=== PATIENT | female | born 1975 | race Caucasian/White ===

== ENCOUNTER 2023-09-19 08:41 | Outpatient (AMB) | payer OTHER, SELFPAY ==
[2023-09-19 08:43] VITALS: BP 162/90; PULSE 85; O2SAT 95
--- NOTE | 2023-09-19 08:43 | MHC.PC.OV ---
Vital Signs 09/19/23 08:43 Height 6 ft 1 in BMI Reason not done Patient refused/unable BP 162/90 H Blood Pressure Location Lt brachial Position Sitting Pulse 85 Pulse Source Pulse Oximeter Pulse Oximetry (%) 95 Oxygen Delivery Method Room Air Intake Visit Reasons: eye issue Intake Note: pt states left eye swelling and pain X3days with no relief. 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 Denies trauma to the eye. Admits hx of styes usually responds well to tea bag comps. Also c/o cellulitis of RLE, acute on chronic, Sx started about 2 months ago. Has been to ED and UC for this. Treated w/ AB. Has been off AB for 1 week. States this has been happenings for the last 3 years. Does not have a PCP. Just moved here from [place] in January. Working on getting established w/ health care team. [facility] Social History Housing: Apartment Patient Tobacco Use Status: Never used Tobacco service: No Current occupational status: employed Cognitive needs: No Hearing needs: No Vision needs: No Questionnaire AUDIT C Alcohol Use Questionnaire (AUDIT-C) 1. How often do you have a drink containing alcohol?: Monthly or less 2. How many drinks containing alcohol do you have on a typical day when you are drinking?: 1 or 2 3. How often do you have six or more drinks on one occasion?: Never Total Score: 1 Physical exam (Primary Care) Vital Signs: Last Vital Signs Pulse 85 09/19/23 08:43 BP 162/90 H 09/19/23 08:43 Pulse Ox 95 09/19/23 08:43 Oxygen Delivery Method Room Air 09/19/23 08:43 Tobacco/Smoking Status: Tobacco use Status Tobacco use date assessed 09/19/23 09/19/23 08:45 Patient Tobacco Use Status Never used Tobacco 09/19/23 08:45 Const Other: awake, alert NAD, chronically ill appearing Left upper eye lid + erythema and edema, tenderness over medial canthus, xenthelasma bilat RLE with lymph edema, chronic hemosiderin changes with multiple vascular ulcers. Skin is not warm to suggest infection. She has dried dressing over ulcer on anterior lower leg which has serous drainage. Shoe not removed for exam Severely morbidly obese Assessment and Plan Assessment & Plan (1) PAD (peripheral artery disease): Comment: affecting BLE w/ ulcers of RLE Referred to vascular surgery for eval and tx Code(s): I73.9 - Peripheral vascular disease, unspecified (2) Dacrocystitis: Comment: tx w doxy, warm comps and gentle message, refer to Optho Code(s): H04.309 - Unspecified dacryocystitis of unspecified lacrimal passage Qualifiers: Laterality: left Qualified Code(s): H04.302 - Unspecified dacryocystitis of left lacrimal passage (3) Congenital blindness: Comment: L eye Code(s): H54.7 - Unspecified visual loss (4) HTN (hypertension): Comment: elevated today. Needs to est care with PCP for management of her chronic conditions She prefers to use urgent cares as does not want to wait months to est care w/ PCP encouraged to set up this appt w PCP and use walk in PRN Code(s): I10 - Essential (primary) hypertension Qualifiers: Hypertension type: primary hypertension Qualified Code(s): I10 - Essential (primary) hypertension (5) Class 3 severe obesity with serious comorbidity and body mass index (BMI) of 60.0 to 69.9 in adult: Comment: with HTN and PAD Code(s): E66.01 - Morbid (severe) obesity due to excess calories; Z68.44 - Body mass index [BMI] 60.0-69.9, adult Qualifiers: Obesity type: due to excess calories Qualified Code(s): E66.01 - Morbid (severe) obesity due to excess calories; Z68.44 - Body mass index [BMI] 60.0-69.9, adult (6) Atherosclerotic peripheral vascular disease with ulceration: Comment: referred to vasc surgery for eval and tx Code(s): I70.209 - Unspecified atherosclerosis of [place] arteries of extremities, unspecified extremity; L98.499 - Non-pressure chronic ulcer of skin of other sites with unspecified severity Qualifiers: Peripheral atherosclerosis location: lower extremity Peripheral atherosclerosis artery type: [place] artery Laterality: bilateral Lower extremity ulceration location: other part of lower leg Qualified Code(s): I70.238 - Atherosclerosis of [place] arteries of right leg with ulceration of other part of lower leg; I70.248 - Atherosclerosis of [place] arteries of left leg with ulceration of other part of lower leg (7) Xanthelasma of eyelid, bilateral: Comment: needs to est care w pcp for mgmt Code(s): H02.63 - Xanthelasma of right eye, unspecified eyelid; H02.66 - Xanthelasma of left eye, unspecified eyelid Plan Total time spent caring for the patient today was 30 minutes. This includes time spent before the visit reviewing the chart, time spent during the visit, and time spent after the visit on documentation This note is constructed using voice recognition software. While every effort has been made to ensure accuracy in gelatin maker utility, still errors may have been included Sometimes, these errors may affect the content or meaning of the given sentence . Orders: Referrals Vascular Surgery Referral I73.9 - Peripheral vascular disease, unspecified Ophthalmology Referral H04.309 - Unspecified dacryocystitis of unspecified lacrimal passage, H54.7 - Unspecified visual loss Medications: New doxycycline hyclate 100 mg PO BID 10 days 20 caps 0RF Coding Level of Care Code Est Pt Level 4 (88075) Diagnoses PAD (peripheral artery disease) I73.9 Dacryocystitis of left lacrimal sac H04.302 Laterality: left Congenital blindness H54.7 Primary hypertension I10 Hypertension type: primary hypertension Class 3 severe obesity due to excess calories with serious comorbidity and body mass index (BMI) of 60.0 to 69.9 in adult E66.01; Z68.44 Obesity type: due to excess calories Atherosclerosis of [place] artery of both lower extremities with bilateral ulceration of other part of lower legs I70.238; I70.248 Peripheral atherosclerosis location: lower extremity Peripheral atherosclerosis artery type: [place] artery Laterality: bilateral Lower extremity ulceration location: other part of lower leg Xanthelasma of eyelid, bilateral H02.63; H02.66
== END 2023-09-19 09:22 | disposition home or self-care (01) ==
PROVIDERS: Visit Provider Nurse Practitioner Family
DX: I70.238 Atherosclerosis of native arteries of right leg with ulceration of other part of lower leg (principal); E66.01 Morbid (severe) obesity due to excess calories; Z68.44 Body mass index [BMI] 60.0-69.9, adult; I70.248 Atherosclerosis of native arteries of left leg with ulceration of other part of lower leg; H04.302 Unspecified dacryocystitis of left lacrimal passage; H54.7 Unspecified visual loss; I10 Essential (primary) hypertension; H02.64 Xanthelasma of left upper eyelid
CPT/HCPCS: 99214

== ENCOUNTER 2023-10-19 14:28 | Outpatient (AMB) | payer OTHER, SELFPAY ==
[2023-10-19 14:35] VITALS: BP 152/80; PULSE 77; RESP 17; O2SAT 95
--- NOTE | 2023-10-19 14:35 | A.OFFPC_ITS ---
Vital Signs 10/19/23 14:35 Height 6 ft 1 in BMI Reason not done Patient refused/unable BP 152/80 H Blood Pressure Location Rt radial Position Sitting Respiration 17 Pulse 77 Pulse Source Pulse Oximeter Pulse Oximetry (%) 95 Oxygen Delivery Method Room Air Intake Visit Reasons: Est care Intake Note: Patient is here to establish care. 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 Required: No Accompanied by: Self / Same As Patient Allergies No Known Allergies Allergy (Verified 10/19/23 15:05) Medication List - Last Reconciled 10/19/23 by KIANNA Gamez No Known Home Meds Tobacco use date assessed: 09/19/23 Dental Screening Dental Screen Date: 09/19/23 HPI HPI Comments History of Present Illness Details 48-year-old female with PAD with ulcerat ion, obesity, hypertension, congenital blindness of the left eye xanthelasma of bilat eyelids, SQUAXIN, some history of heart condition with tachycardia w/ procedure, MDD Health Maintenance: Colon DEXA Mammo Pap Specialists: Optho Vascular Here today to est care Has PVD with lymphedema, weeping of RLE, ulceration of RLE that she has been applying cream and towels to QD Vasc consult placed and was on hold until she est care for PCP No previous medical records; moved from [place]. Has eye appt next week; eye sx she c/o at walk in visit have improved s/p ABT (doxy) No new visual complaints She has not had labs in 6 years Aware of her obesity; admits wt gain; polyuria, dypsia, phagia. [facility] Medical History (Updated 10/19/23 @ 17:22 by KIANNA Gamez) Very rapid heartbeat HTN (hypertension) Congenital blindness PAD (peripheral artery disease) Surgical History (Updated 10/19/23 @ 14:46 by Leonila Larsen CMA) History of cardiac catheterization History of surgery on lower extremity Family History (Updated 10/19/23 @ 15:04 by Leonila Larsen CMA) Maternal Grandfather Alcoholism in family member Lung cancer Primary cancer of optic nerve Cardiovascular disease Mother Hypotension Father Hypertension High cholesterol Diabetes Sister Diabetes Social History (Updated 10/19/23 @ 14:42 by Leonila Larsen CMA) Household Members: None Housing: Apartment Are you a primary special needs child caregiver to a significant other at home: No Do you presently have visiting nurse or other home services: No 75 years or older and lives alone: No Alcohol intake: current Alcohol intake frequency: holidays/special occasions only Patient Tobacco Use Status: Never used Tobacco e-Cigarette/Vaping Use: Never Used service: No Current occupational status: employed Cognitive needs: No Hearing needs: No Vision needs: No Questionnaire PHQ-9 Over the last 2 weeks, how often have you been bothered by any of the following problems? 1. Little interest or pleasure in doing things: nearly every day 2. Feeling down, depressed, or hopeless: not at all 3. Trouble falling or staying asleep, or sleeping too much: nearly every day 4. Feeling tired or having little energy: nearly every day 5. Poor appetite or overeating: nearly every day 6. Feeling bad about yourself - or that you are a failure or have let yourself or your family down: not at all 7. Trouble concentrating on things, such as reading the newspaper or watching television: not at all 8. Moving or speaking so slowly that other people could have noticed. Or the opposite - being so fidgety or restless that you have been moving around a lot more than usual: not at all 9. Thoughts that you would be better off or of hurting yourself in some way: not at all Total score: 12 Depression Screening Interpretation: Positive Depression Screening Follow-up: Follow-up Visit Requested Depression Screening Done: Yes 67664 - PHQ-9 Billing: Yes Source: Developed by Drs. Vinny Adams, Kathi Vazquez, Howie Correia and colleagues, with an educational efren from [employer]. Thrive Questionnaire Date Thrive assessed: 10/19/23 I am a: Patient What is your living situation today?: I have a steady place to live Within the past 12 months, did the food you bought not last and you didn't have the money to get more?: Never true Within the past 12 months, did you worry whether your food would run out before you got money to buy more?: Never true Do you have trouble paying for medicines?: No Do you have trouble getting transportation to medical appointments?: No Do you have trouble paying your heating and electricity bill?: No Do you have trouble taking care of your child, family member or friend?: No Do you have trouble with day-to-day activities such as bathing, preparing meals, shopping, managing finances, etc.?: No Are you currently unemployed and looking for a job?: No Are you interested in more education?: No Please select the resources that you would like help with: None Currently or been in a relationship where the following occur: no concerns repor iris THRIVE Score: 0 AUDIT C Alcohol Use Questionnaire (AUDIT-C) 1. How often do you have a drink containing alcohol?: Monthly or less 2. How many drinks containing alcohol do you have on a typical day when you are drinking?: 1 or 2 3. How often do you have six or more drinks on one occasion?: Never Total Score: 1 DARREL-7 AMB Questionnaire DARREL-7 Date DARREL - 7 assessed: 10/19/23 Feeling nervous, anxious, or on edge: 0 = Not at all Not being able to stop or control worryin = Not at all Worrying too much about different things: 3 = Nearly every day Trouble relaxin = Not at all Being so restless that it is hard to sit still: 0 = Not at all Becoming easily annoyed or irritable: 2 = More than half the days Feeling afraid as if something awful might happen: 0 = Not at all Total DARREL-7 score (0-4 normal; 5-9 mild; 10-14 moderate; 15-21 severe): 5 Source: Developed by Drs. Vinny Adams, Kathi Vazquez, Howie Correia and colleagues, with an educational efren from [employer]. DARERL-7 Assessment Billing DARREL-7 Assessment Tool: DARREL-7 Assessment 80340 Physical exam (Primary Care) Vital Signs: Last Vital Signs Pulse 77 10/19/23 14:35 Resp 17 10/19/23 14:35 BP 152/80 H 10/19/23 14:35 Pulse Ox 95 10/19/23 14:35 Oxygen Delivery Method Room Air 10/19/23 14:35 Care Plan Goal for BP management: start meds at next visit after lab review BMI Assessment/Plan discussion: High BMI High, discussed plan: lifestyle Tobacco/Smoking Status: Tobacco use Status Tobacco use date assessed 09/19/23 10/19/23 14:49 Patient Tobacco Use Status Never used Tobacco 10/19/23 14:49 e-Cigarette/Vaping Use Never Used 10/19/23 14:49 PHQ-9: PHQ-9 Score PHQ-9: Total score 12 10/19/23 15:36 Depression Screening Interpretation: Positive Depression Screening Follow-up: Follow-up Visit Requested Thrive Assessment: Date of Thrive Assessment Date Thrive assessed 10/19/23 10/19/23 14:49 Currently or been in a relationship where the following occur: no concerns reported Const Other: awake, alert NAD, chronically ill appearing xenthelasma bilat BLE with lymphedema & chronic hemosiderin changes, RLE with multiple vascular ulcers. Skin is not warm to suggest infection. Shoes not removed for exam Severely morbidly obese Assessment and Plan Assessment & Plan (1) Atherosclerotic peripheral vascular disease with ulceration: Comment: referred to vasc surgery for eval and tx advised to apply xeroform gauze and dcd to ulcer QD until healed or advised by [facility] to do something else apply lachydrin to intact skin Code(s): I70.209 - Unspecified atherosclerosis of [place] arteries of extremities, unspecified extremity; L98.499 - Non-pressure chronic ulcer of skin of other sites with unspecified severity Qualifiers: Laterality: bilateral Lower extremity ulceration location: other part of lower leg Peripheral atherosclerosis artery type: [place] artery Peripheral atherosclerosis location: lower extremity Qualified Code(s): I70.238 - Atherosclerosis of [place] arteries of right leg with ulceration of other part of lower leg; I70.248 - Atherosclerosis of [place] arteries of left leg with ulceration of other part of lower leg (2) PAD (peripheral artery disease): Comment: affecting BLE w/ ulcers of RLE Referred to vascular surgery for eval and tx Code(s): I73.9 - Peripheral vascular disease, unspecified (3) HTN (hypertension): Comment: elevated today. check labs and bring back for review and medication start Code(s): I10 - Essential (primary) hypertension Qualifiers: Hypertension type: primary hypertension Qualified Code(s): I10 - Essential (primary) hypertension (4) Class 3 severe obesity with serious comorbidity and body mass index (BMI) of 60.0 to 69.9 in adult: Comment: with HTN and PAD Code(s): E66.01 - Morbid (severe) obesity due to excess calories; Z68.44 - Body mass index [BMI] 60.0-69.9, adult Qualifiers: Obesity type: due to excess calories Qualified Code(s): E66.01 - Morbid (severe) obesity due to excess calories; Z68.44 - Body mass index [BMI] 60.0- 69.9, adult Plan 60 minutes spent taking care of this patient, this includes chart review, face to face time and charting. Orders: Orders TSH reflex Free T4 Today E66.01 - Morbid (severe) obesity due to excess calories, I10 - Essential (primary) hypertension, I70.238 - Atherosclerosis of [place] arteries of right leg with ulceration of other part of lower leg, I70.248 - Atherosclerosis of [place] arteries of left leg with ulceration of other part of lower leg, I73.9 - Peripheral vascular disease, unspecified, Z68.44 - Body mass index [BMI] 60.0-69.9, adult Microalbumin, Random (w Creat) Today E66.01 - Morbid (severe) obesity due to excess calories, I10 - Essential (primary) hypertension, I70.238 - Atherosclerosis of [place] arteries of right leg with ulceration of other part of lower leg, I70.248 - Atherosclerosis of [place] arteries of left leg with ulceration of other part of lower leg, I73.9 - Peripheral vascular disease, unspecified, Z68.44 - Body mass index [BMI] 60.0-69.9, adult IRON PROFILE Today E66.01 - Morbid (severe) obesity due to excess calories, I10 - Essential (primary) hypertension, I70.238 - Atherosclerosis of [place] arteries of right leg with ulceration of other part of lower leg, I70.248 - Atherosclerosis of [place] arteries of left leg with ulceration of other part of lower leg, I73.9 - Peripheral vascular disease, unspecified, Z68.44 - Body mass index [BMI] 60.0-69.9, adult Lipid Panel Today E66.01 - Morbid (severe) obesity due to excess calories, I10 - Essential (primary) hypertension, I70.238 - Atherosclerosis of [place] arteries of right leg with ulceration of other part of lower leg, I70.248 - Atherosclerosis of [place] arteries of left leg with ulceration of other part of lower leg, I73.9 - Peripheral vascular disease, unspecified, Z68.44 - Body mass index [BMI] 60.0-69.9, adult Hemoglobin A1c Today E66.01 - Morbid (severe) obesity due to excess calories, I10 - Essential (primary) hypertension, I70.238 - Atherosclerosis of [place] arteries of right leg with ulceration of other part of lower leg, I70.248 - Atherosclerosis of [place] arteries of left leg with ulceration of other part of lower leg, I73.9 - Peripheral vascular disease, unspecified, Z68.44 - Body mass index [BMI] 60.0-69.9, adult Comprehensive Phyllis. Panel Fast Today E66.01 - Morbid (severe) obesity due to excess calories, I10 - Essential (primary) hypertension, I70.238 - Atherosclerosis of [place] arteries of right leg with ulceration of other part of lower leg, I70.248 - Atherosclerosis of [place] arteries of left leg with ulceration of other part of lower leg, I73.9 - Peripheral vascular disease, unspecified, Z68.44 - Body mass index [BMI] 60.0-69.9, adult Vitamin D 1,25 dihydroxy Today E66.01 - Morbid (severe) obesity due to excess calories, I10 - Essential (primary) hypertension, I70.238 - Atherosclerosis of [place] arteries of right leg with ulceration of other part of lower leg, I70.248 - Atherosclerosis of [place] arteries of left leg with ulceration of other part of lower leg, I73.9 - Peripheral vascular disease, unspecified, Z68.44 - Body mass index [BMI] 60.0-69.9, adult Complete Blood Count no Diff Today E66.01 - Morbid (severe) obesity due to excess calories, I10 - Essential (primary) hypertension, I70.238 - Atherosclerosis of [place] arteries of right leg with ulceration of other part of lower leg, I70.248 - Atherosclerosis of [place] arteries of left leg with ulceration of other part of lower leg, I73.9 - Peripheral vascular disease, unspecified, Z68.44 - Body mass index [BMI] 60.0-69.9, adult Vitamin B12 and Folate Today E66.01 - Morbid (severe) obesity due to excess calories, I10 - Essential (primary) hypertension, I70.238 - Atherosclerosis of [place] arteries of right leg with ulceration of other part of lower leg, I70.248 - Atherosclerosis of [place] arteries of left leg with ulceration of other part of lower leg, I73.9 - Peripheral vascular disease, unspecified, Z68.44 - Body mass index [BMI] 60.0-69.9, adult UA CC w/rflx Micro + Cult Today E66.01 - Morbid (severe) obesity due to excess calories, Z68.44 - Body mass index [BMI] 60.0-69.9, adult Medications: New white petrolatum (Petrolatum Gauze) As directed, apply to lower ext ulcer daily until healed 72 ea 0RF I70.238 - Atherosclerosis of [place] arteries of right leg with ulceration of other part of lower leg, I70.248 - Atherosclerosis of [place] arteries of left leg with ulceration of other part of lower leg gauze bandage (Band-Aid Rolled Gauze) As directed, use daily to lower ext open area until healed 30 ea 5RF I70.238 - Atherosclerosis of [place] arteries of right leg with ulceration of other part of lower leg, I70.248 - Atherosclerosis of [place] arteries of left leg with ulceration of other part of lower leg ammonium lactate 12% 1 appl topical BID 385 grams 3RF apply to lower ext, avoid open areas Patient Instructions: XEROFORM GAUZE (ANY SIZE > 4X4) ROLLED GAUZE (ANY SIZE) Please call to schedule appt: ?[facility] [address] [place] [address] [address] [place], [place] [id number] RTO IN 2 WEEKS TO FU ON LABS AND DISCUSS START MEDS FOR CHRONIC CONDITIONS, SOONER IF NEEDED Coding Level of Care Code Est Pt Level 5 (33995) Diagnoses Atherosclerosis of [place] artery of both lower extremities with bilateral ulceration of other part of lower legs I70.238; I70.248 Laterality: bilateral Lower extremity ulceration location: other part of lower leg Peripheral atherosclerosis artery type: [place] artery Peripheral atherosclerosis location: lower extremity PAD (peripheral artery disease) I73.9 Primary hypertension I10 Hypertension type: primary hypertension Class 3 severe obesity due to excess calories with serious comorbidity and body mass index (BMI) of 60.0 to 69.9 in adult E66.01; Z68.44 Obesity type: due to excess calories Additional Codes DARREL-7 Assessment Billing - DARREL-7 Assessment Tool: DARREL-7 Assessment 16312 ([id number])
== END 2023-10-19 15:54 | disposition home or self-care (01) ==
PROVIDERS: Visit Provider Nurse Practitioner Family
DX: I70.238 Atherosclerosis of native arteries of right leg with ulceration of other part of lower leg (principal); I70.248 Atherosclerosis of native arteries of left leg with ulceration of other part of lower leg; E66.01 Morbid (severe) obesity due to excess calories; Z68.44 Body mass index [BMI] 60.0-69.9, adult; I10 Essential (primary) hypertension
CPT/HCPCS: 99215; 99417

== ENCOUNTER 2023-10-26 10:02 | Outpatient (REF) | payer OTHER, SELFPAY ==
[2023-10-26 11:27] LABS: Appearance Urine Clear; Color Urine Yellow; Glucose Urine UA Negative (Negative); Leukocyte Esterase Urine Negative (Negative); Nitrite Urine Negative (Negative); PH 5.5 (5.0-9.0); Specific Gravity - Urine 1.015 (1.005-1.025); Urine Blood Negative (Negative); Urine Ketones Negative (Negative); Urine Protein Negative (Neg-Trace)
[2023-10-26 11:41] LABS: Hematocrit 43.1 % (37.0-47.0); Hemoglobin 13.3 g/dl (12.0-16.0); Mean Corpuscular HGB Conc 30.9 g/dl (31.0-35.0); Mean Corpuscular Hemoglobin 26.5 pg (27.0-33.0); Mean Corpuscular Volume 85.9 fL (80.0-98.0); Mean Platelet Volume 12.3 fL (9.4-12.3); Platelet Count 230 X10*3/uL (160-400); Red Blood Count 5.02 X10*6/uL (4.20-5.50); Red Cell Distribution Width 15.5 % (11.0-16.0); White Blood Count 5.5 X10*3/uL (4.8-10.8)
[2023-10-26 11:54] LABS: Estimated Average Glucose 131 mg/dL; Hemoglobin A1c % 6.2 % (<6.0)
[2023-10-26 12:24] LABS: Alanine Aminotransferase 24 U/L (0-31); Albumin Level 4.2 g/dL (3.5-5.0); Alkaline Phosphatase 60 U/L (39-117); Anion Gap 12 (12-20); Aspartate Amino Transferase 19 U/L (5-31); Bilirubin Total 1.5 mg/dL (0.0-1.0); Blood Urea Nitrogen 25 mg/dL (9-16); Calcium 9.5 mg/dL (8.4-10.2); Carbon Dioxide 25 mmol/L (22-29); Chloride 106 mmol/L (96-108); Cholesterol 161 mg/dL (<200); Estimated Glomerular Filt Rate > 60; Glucose Fasting 106 mg/dL (60-99); HDL Cholesterol 34 mg/dL (>40); Iron 110 mcg/dL (30-160); LDL Cholesterol Calculated 109 mg/dL (<100); Percent Iron Saturation 28 % (15-50); Sodium 138 mmol/L (135-145); TSH reflex Free T4 1.45 uIU/mL (0.32-4.0); Total Iron Binding Capacity 389 mcg/dL (228-428); Total Protein 7.6 g/dL (6.5-8.0); Triglycerides 90 mg/dL (<150); Unsaturated Iron Binding 279 ug/dL
[2023-10-26 12:27] LABS: Creatinine Urine 78.68 mg/dL; Microalbum/Creatinine Ratio Ur 16.5 ug/mg cr (<30)
[2023-10-26 18:02] LABS: Folate 7.8 ng/mL (> or = 4.0); Vitamin B12 366 pg/mL (200-900)
[2023-10-30 14:09] LABS: VITAMIN D (1,25 OH) D3 35 pg/mL; Vit D (1,25-Dihydroxy) Total 35 pg/mL (18-72); Vitamin D (1,25 OH) D2 <8 pg/mL
== END 2023-10-26 10:03 | disposition home or self-care (01) ==
LOC: HO.WFDLDS 10:02
PROVIDERS: Visit Provider Nurse Practitioner Family
DX: I70.238 Atherosclerosis of native arteries of right leg with ulceration of other part of lower leg (principal); I70.248 Atherosclerosis of native arteries of left leg with ulceration of other part of lower leg; E66.01 Morbid (severe) obesity due to excess calories; Z68.44 Body mass index [BMI] 60.0-69.9, adult; I10 Essential (primary) hypertension
CPT/HCPCS: 36415; 80053; 80061; 81003; 82043; 82570; 82607; 82652; 82746; 83036; 83540; 84443; 85027

== ENCOUNTER 2023-11-02 09:39 | Outpatient (AMB) | payer OTHER, SELFPAY ==
--- NOTE | 2023-11-02 09:42 | MHC.PC.OV ---
Vital Signs 11/02/23 09:51 Height 6 ft 1 in BMI Reason not done Patient refused/unable Pulse 71 Pulse Source Pulse Oximeter Pulse Oximetry (%) 95 Oxygen Delivery Method Room Air Intake Visit Reasons: FU LABS/Edema/Start meds Intake Note: Patient is here to follow up with labs and edema. Patient reports she is worried today, but shares she has no concerns at this time. 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, [place], some history of heart condition with tachycardia w/ procedure, MDD, prediabetes Health Maintenance: Colon DEXA Mammo Pap Eye exam 09/2023 Specialists: Optho Vascular Here today to f/u on labs, HTN, lymphedema Labs from October 26 2023 show a normal CBC, hemoglobin A1c 6.2%, normal UA, normal electrolytes, elevated BUN 25, normal creatinine GFR, normal elevated fasting glucose 106, normal iron studies, elevated total bilirubin 1.5, normal LFTs, acceptable lipid profile, normal B12, normal folate, normal TSH, normal urine microalbumin creatinine ratio, vitamin-D normal No appt w/ Vascular yet - i have sent another request to office staff to help schedule this; the referral is already in place She is using Lachydrin as directed along w/ xeroform. Ulcers to RLE remain the same. [facility] Medical History (Updated 11/02/23 @ 10:33 by KIANNA Gamez) Very rapid heartbeat HTN (hypertension) Congenital blindness PAD (peripheral artery disease) Surgical History (Updated 10/19/23 @ 14:46 by Leonila Larsen [facility]) History of cardiac catheterization History of surgery on lower extremity Family History (Updated 10/19/23 @ 15:04 by Leonila Larsen CMA) Maternal Grandfather Alcoholism in family member Lung cancer Primary cancer of optic nerve Cardiovascular disease Mother Hypotension Father Hypertension High cholesterol Diabetes Sister Diabetes Social History (Updated 10/19/23 @ 14:42 by Leonila Larsen CMA) Household Members: None Housing: Apartment Are you a primary pet care associate to a significant other at home: No Do you presently have visiting nurse or other home services: No 75 years or older and lives alone: No Alcohol intake: current Alcohol intake frequency: holidays/special occasions only Patient Tobacco Use Status: Never used Tobacco e-Cigarette/Vaping Use: Never Used service: No Current occupational status: employed Cognitive needs: No Hearing needs: No Vision needs: No Questionnaire PHQ-9 Over the last 2 weeks, how often have you been bothered by any of the following problems? Depression Screening Interpretation: Negative Depression Screening Done: Yes Source: Developed by Drs. Vinny Adams, Kathi Vazquez, Howie Correia and colleagues, with an educational efren from [employer]. Thrive Questionnaire Date Thrive assessed: 10/19/23 Currently or been in a relationship where the following occur: no concerns reported THRIVE Score: 0 DARREL-7 AMB Questionnaire DARREL-7 Date DARREL - 7 assessed: 10/19/23 Source: Developed by Drs. Vinny Adams, Howie Zarate and colleagues, with an educational efren from [employer]. Review of Systems Const All systems reviewed & are unremarkable except as noted in HPI and below Physical exam (Primary Care) Vital Signs: Last Vital Signs Pulse 71 11/02/23 09:51 Pulse Ox 95 11/02/23 09:51 Oxygen Delivery Method Room Air 11/02/23 09:51 Care Plan Goal for BP management: start HCTZ Next steps: MONITOR BMI Assessment/Plan discussion: High BMI High, discussed plan: lifestyle Tobacco/Smoking Status: Tobacco use Status Tobacco use date assessed 09/19/23 11/02/23 09:42 Patient Tobacco Use Status Never used Tobacco 11/02/23 09:42 e-Cigarette/Vaping Use Never Used 11/02/23 09:42 Depression Screening Interpretation: Negative Thrive Assessment: Date of Thrive Assessment Date Thrive assessed 10/19/23 11/02/23 09:42 Currently or been in a relationship where the following occur: no concerns reported Const Other: awake, alert NAD, chronically ill appearing xenthelasma bilat BLE with lymphedema & chronic hemosiderin changes, RLE with multiple vascular ulcers. Skin is not warm to suggest infection. Shoes not removed for exam Severely morbidly obese Assessment and Plan Assessment & Plan (1) Xanthelasma of eyelid, bilateral: Comment: start atorvastatin 40mg QD Cont to f/u with Optho Code(s): H02.63 - Xanthelasma of right eye, unspecified eyelid; H02.66 - Xanthelasma of left eye, unspecified eyelid (2) Atherosclerotic peripheral vascular disease with ulceration: Comment: referred to [facility] surgery for eval and tx advised to apply xeroform gauze and dcd to ulcer QD until healed or advised by [facility] to do something else apply lachydrin to intact skin Start Atorvastatin 40mg QD. Code(s): I70.209 - Unspecified atherosclerosis of [place] arteries of extremities, unspecified extremity; L98.499 - Non-pressure chronic ulcer of skin of other sites with unspecified severity Qualifiers: Peripheral atherosclerosis location: lower extremity Peripheral atherosclerosis artery type: [place] artery Laterality: bilateral Lower extremity ulceration location: other part of lower leg Qualified Code(s): I70.238 - Atherosclerosis of [place] arteries of right leg with ulceration of other part of lower leg; I70.248 - Atherosclerosis of [place] arteries of left leg with ulceration of other part of lower leg (3) Class 3 severe obesity with serious comorbidity and body mass index (BMI) of 60.0 to 69.9 in adult: Comment: with HTN and PAD Start Rebylsus 3mg po QD. Titrate to effect. No contraindications. Reviewed side effects. Code(s): E66.01 - Morbid (severe) obesity due to excess calories; Z68.44 - Body mass index [BMI] 60.0-69.9, adult Qualifiers: Obesity type: due to excess calories Qualified Code(s): E66.01 - Morbid (severe) obesity due to excess calories; Z68.44 - Body mass index [BMI] 60.0-69.9, adult (4) HTN (hypertension): Comment: Start HCTZ 25mg po QD Goal <130/80 Code(s): I10 - Essential (primary) hypertension Qualifiers: Hypertension type: primary hypertension Qualified Code(s): I10 - Essential (primary) hypertension (5) Prediabetes: Comment: 10/2023 HgA1 6.2% Start Rebylsus 3 mg po QD. Code(s): R73.03 - Prediabetes Plan This note is constructed using voice recognition software. While every effort has been made to ensure accuracy in surg physician asst, still errors may have been included Sometimes, these errors may affect the content or meaning of the given sentence . Total time spent caring for the patient today was 45 minutes. This includes time spent before the visit reviewing the chart, time spent during the visit, and time spent after the visit on documentation Orders: Orders Lipid Panel 01/08/24 E66.01 - Morbid (severe) obesity due to excess calories, I10 - Essential (primary) hypertension, I70.238 - Atherosclerosis of [place] arteries of right leg with ulceration of other part of lower leg, I70.248 - Atherosclerosis of [place] arteries of left leg with ulceration of other part of lower leg, R73.03 - Prediabetes, Z68.44 - Body mass index [BMI] 60.0-69.9, adult Hemoglobin A1c 01/08/24 E66.01 - Morbid (severe) obesity due to excess calories, I10 - Essential (primary) hypertension, I70.238 - Atherosclerosis of [place] arteries of right leg with ulceration of other part of lower leg, I70.248 - Atherosclerosis of [place] arteries of left leg with ulceration of other part of lower leg, R73.03 - Prediabetes, Z68.44 - Body mass index [BMI] 60.0-69.9, adult Comprehensive [place]. Panel Fast 01/08/24 E66.01 - Morbid (severe) obesity due to excess calories, I10 - Essential (primary) hypertension, I70.238 - Atherosclerosis of [place] arteries of right leg with ulceration of other part of lower leg, I70.248 - Atherosclerosis of [place] arteries of left leg with ulceration of other part of lower leg, R73.03 - Prediabetes, Z68.44 - Body mass index [BMI] 60.0-69.9, adult Medications: New hydrochlorothiazide 25 mg PO DAILY 90 tabs 0RF atorvastatin 40 mg PO BEDTIME 90 tabs 0RF semaglutide 3 mg PO DAILY 30 days 30 tabs 0RF Patient Instructions: RTO in 4 weeks to fu on HTN, Obesity, PAD , sooner PRN Emphasize that?Rybelsus?must be taken DAILY with a sip or no more than 4 ounces of water...at least 30 minutes before the first food, other beverage, or oral meds of the day. Not doing so reduces efficacy. Coding Level of Care Code Est Pt Level 5 (17215) Diagnoses Xanthelasma of eyelid, bilateral H02.63; H02.66 Atherosclerosis of [place] artery of both lower extremities with bilateral ulceration of other part of lower legs I70.238; I70.248 Peripheral atherosclerosis location: lower extremity Peripheral atherosclerosis artery type: [place] artery Laterality: bilateral Lower extremity ulceration location: other part of lower leg Class 3 severe obesity due to excess calories with serious comorbidity and body mass index (BMI) of 60.0 to 69.9 in adult E66.01; Z68.44 Obesity type: due to excess calories Primary hypertension I10 Hypertension type: primary hypertension Prediabetes R73.03
[2023-11-02 09:51] VITALS: PULSE 71; O2SAT 95
== END 2023-11-02 10:30 | disposition home or self-care (01) ==
PROVIDERS: Visit Provider Nurse Practitioner Family
DX: I70.238 Atherosclerosis of native arteries of right leg with ulceration of other part of lower leg (principal); I70.248 Atherosclerosis of native arteries of left leg with ulceration of other part of lower leg; E66.01 Morbid (severe) obesity due to excess calories; Z68.44 Body mass index [BMI] 60.0-69.9, adult; H02.63 Xanthelasma of right eye, unspecified eyelid; H02.66 Xanthelasma of left eye, unspecified eyelid; I10 Essential (primary) hypertension; R73.03 Prediabetes
CPT/HCPCS: 99215

== ENCOUNTER 2023-12-07 11:02 | Outpatient (AMB) | payer OTHER, SELFPAY ==
--- NOTE | 2023-12-07 11:07 | A.OFFVIS_ITS ---
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 Has a wound on the right calf area that is seeping yellowish fluid. Says she's concerned because her skin is bubbling starting around 6 months ago. Thought it was cellulitis at first. 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 She reports that it has been going on since October. She has had swollen legs for many years. They have been progressively getting worse. At the current time she has this right lateral calf ulcer which has been draining serous fluid. She was actually given a diuretic by her primary care which has improved her overall situation but she is still draining a fair amount from these legs. Upon discussion with her she is a nonsmoker nondiabetic. She reports no prior history of DVTs or venous interventions. She now presents to us for vascular evaluation. [facility] Medical History Very rapid heartbeat HTN (hypertension) Congenital blindness PAD (peripheral artery disease) Surgical History History of cardiac catheterization History of surgery on lower extremity Family History Maternal Grandfather Alcoholism in family member Lung cancer Primary cancer of optic nerve Cardiovascular disease Mother Hypotension Father Hypertension High cholesterol Diabetes Sister Diabetes Social History Household Members: None Housing: Apartment Are you a primary cattle care worker to a significant other at home: No Do you presently have visiting nurse or other home services: No 75 years or older and lives alone: No Alcohol intake: current Alcohol intake frequency: holidays/special occasions only Patient Tobacco Use Status: Never used Tobacco e-Cigarette/Vaping Use: Never Used service: No Current occupational status: employed Sexual orientation: Unable to collect Gender identity: Female Cognitive needs: No Hearing needs: No Vision needs: No Review of Systems Const Reports as per HPI ENT Reports no additional complaints Card Denies chest pain, Denies chest pain at rest and Denies chest pain with activity Resp Denies chest congestion and Denies cough GI Reports no additional complaints Musc Details: pain over varicosities, aching of lower extremities, swelling, cramping, heaviness and tiredness, itching Denies abnormal gait Skin/Breast Reports pruritus and Denies wounds Neuro Reports no additional complaints and Denies abnormal gait Psych Denies no additional complaints Physical Exam Const General: cooperative, healthy appearing and comfortable Orientation/consciousness: oriented to person, oriented to place and oriented to time Neck Carotids: no bruits Chest Chest palpation & inspection: normal inspection of the chest and normal palpation of entire chest wall Resp Effort & Inspection: normal respiratory effort and able to speak in complete sentences Cardio Other: Patient does have palpable bilateral arterial pulses Rate: regular rate Heart sounds: S1 normal heart sound present and S2 normal heart sound present Peripheral pulses: Peripheral pulses 2+ throughout GI Inspection: Yes normal to inspection Skin Other: +2 edema, right calf open wound with serous drainage. Extremely swollen legs with hyperkeratotic skin CEAP Classification C6 - open ulcer Ep - Etiology Primary As - superficial veins P - reflux General skin exam: dry skin Neuro General: oriented to person, oriented to place and oriented to time Extrem Right lower extremity: full ROM, normal capillary refill and edema Left lower extremity: full ROM, normal capillary refill and edema Psych Mental Status: mental status grossly normal Assessment & Plan Assessment & Plan (1) Varicose veins of right lower extremity with inflammation: Code(s): I83.11 - Varicose veins of right lower extremity with inflammation Category: Medical Plan: In short patient has significantly swollen legs. There are multiple etiologies of this including her super morbid obesity. I would like to work her up for venous insufficiency. Her arterial system does appear to be intact as she does have palpable pulses. Unclear if I will be able to intervene on her venous di sease due to her size. But we will assess this. Should this prove to be negative we may try to obtain lymphedema pumps to try to help her overall situation. (2) Lymphedema: Code(s): I89.0 - Lymphedema, not elsewhere classified Category: Medical Plan: Will need workup for venous insufficiency. In addition we will plan for lymphedema pumps. Orders: Orders US venous duplex LE BI 1 Week I83.11 - Varicose veins of right lower extremity with inflammation Coding Level of Care Code New Pt Level 4 (94209) Diagnoses Varicose veins of right lower extremity with inflammation I83.11 Lymphedema I89.0
== END 2023-12-07 11:41 | disposition home or self-care (01) ==
PROVIDERS: Visit Provider Surgery Vascular Surgery
DX: I83.11 Varicose veins of right lower extremity with inflammation (principal); I89.0 Lymphedema, not elsewhere classified
CPT/HCPCS: 99203

== ENCOUNTER 2023-12-21 09:36 | Outpatient (AMB) | payer OTHER, SELFPAY ==
[2023-12-21 09:46] VITALS: BP 160/90; PULSE 106; RESP 15; TEMP 36.6; O2SAT 97
--- NOTE | 2023-12-21 09:46 | MHC.PC.OV ---
Vital Signs 12/21/23 09:46 12/21/23 10:48 Height 6 ft 1 in BMI Reason not done Patient refused/unable BP 160/90 H 138/80 Blood Pressure Location Rt brachial Rt radial Position Sitting Sitting Respiration 15 Pulse 106 H Pulse Source Pulse Oximeter Temp 98 F Temp Source Temporal Artery Scan Pulse Oximetry (%) 97 Oxygen Delivery Method Room Air Intake Visit Reasons: f/u HTN,chol,lympedema,obesity Teaching Music Lessons Required: No Accompanied by: Self / Same As Patient Allergies No Known Allergies Allergy (Verified 12/21/23 09:51) Medication List - Last Reconciled 12/21/23 by Ngoc Gambino, BOILERMAKER-BC ammonium lactate 12% 1 appl topical BID atorvastatin 40 mg PO BEDTIME gauze bandage (Band-Aid Rolled Gauze) As directed, use daily to lower ext open area until healed hydrochlorothiazide 25 mg PO DAILY white petrolatum (Petrolatum Gauze) As directed, apply to lower ext ulcer daily until healed Tobacco use date assessed: 09/19/23 Dental Screening Dental Screen Date: 09/19/23 HPI HPI Comments History of Present Illness Details 48-year-old female with PAD with ulceration, obesity, hypertension, congenital blindness of the left eye xanthelasma of bilat eyelids. [place], prediabetes Health Maintenance: Colon DEXA Mammo Pap [facility] - 10/2023 exam Specialists: Optho Vascular Labs from October 26 2023 show a normal CBC, hemoglobin A1c 6.2%, normal UA, normal electrolytes, elevated BUN 25, normal creatinine GFR, normal elevated fasting glucose 106, normal iron studies, elevated total bilirubin 1.5, normal LFTs, acceptable lipid profile, normal B12, normal folate, normal TSH, normal urine microalbumin creatinine ratio, vitamin-D normal Here today to follow up on chronic conditions. Since last office visit she did have a consult with vascular. This consult note was reviewed. - check imaging, tx for lymphedema DX with Rogelio Pedrito Unfortunately she missed her vascular imaging as she overslept. She will work on rescheduling. She has using the foam pads and David bandage as directed to the right lower extremity ulcer. Having a hard time managing David bandage as she can not bend over. During the best that she can. Unfortunately the rybelsus this was not covered by her insurance to help her with weight loss. Even PA was denied. Having issues w/ sleep, started a few weeks ago. Declined sleep study as she does not want to wear a machine. Blood pressure is well controlled on her current medications. She is tolerating compliant. Plan Add wellbutrin xl 150mg po QD to see if this helps with weight loss. Cont care w/ Vascular Continue blood pressure medications 30 min in January HTN, lipids, wt loss, repeat fasting labs 1 week before. [facility] Medical History Very rapid heartbeat HTN (hypertension) Congenital blindness PAD (peripheral artery disease) Surgical History History of cardiac catheterization History of surgery on lower extremity Family History Maternal Grandfather Alcoholism in family member Lung cancer Primary cancer of optic nerve Cardiovascular disease Mother Hypotension Father Hypertension High cholesterol Diabetes Sister Diabetes Social History Household Members: None Housing: Apartment Are you a primary neonatal critical care nurse to a significant other at home: No Do you presently have visiting nurse or other home services: No 75 years or older and lives alone: No Alcohol intake: current Alcohol intake frequency: holidays/special occasions only Patient Tobacco Use Status: Never used Tobacco e-Cigarette/Vaping Use: Never Used service: No Current occupational status: employed Sexual orientation: Unable to collect Gender identity: Female Cognitive needs: No Hearing needs: No Vision needs: No Questionnaire Thrive Questionnaire Date Thrive assessed: 10/19/23 DARREL-7 AMB Questionnaire DARREL-7 Date DARREL - 7 assessed: 10/19/23 Source: Developed by Drs. Vinny Adams, Kathi Vazquez, Howie Correia and colleagues, with an educational efren from [employer]. Review of Systems Const All systems reviewed & are unremarkable except as noted in HPI and below Physical exam (Primary Care) Vital Signs: Last Vital Signs Temp 98 F 12/21/23 09:46 Pulse 106 H 12/21/23 09:46 Resp 15 12/21/23 09:46 BP 138/80 12/21/23 10:48 Pulse Ox 97 12/21/23 09:46 Oxygen Delivery Method Room Air 12/21/23 09:46 Tobacco/Smoking Status: Tobacco use Status Tobacco use date assessed 09/19/23 12/21/23 09:52 Patient Tobacco Use Status Never used Tobacco 12/21/23 09:52 e-Cigarette/Vaping Use Never Used 12/21/23 09:52 Thrive Assessment: Date of Thrive Assessment Date Thrive assessed 10/19/23 12/21/23 09:52 Const Other: awake, alert NAD, chronically ill appearing xenthelasma bilat BLE with lymphedema & chronic hemosiderin changes, RLE with multiple vascular ulcers. Skin is not warm to suggest infection. Shoes not removed for exam. Foam dressing and DAVID wrap reapplied during visit today Severely morbidly obese Assessment and Plan Assessment & Plan (1) HTN (hypertension): Comment: cont HCTZ 25mg po QD Goal <130/80 Code(s): I10 - Essential (primary) hypertension Qualifiers: Hypertension type: primary hypertension Qualified Code(s): I10 - Essential (primary) hypertension (2) PAD (peripheral artery disease): Comment: affecting BLE w/ ulcers of RLE Referred to vascular surgery Code(s): I73.9 - Peripheral vascular disease, unspecified (3) Class 3 severe obesity with serious comorbidity and body mass index (BMI) of 60.0 to 69.9 in adult: Comment: with HTN and PAD Start Rebylsus 3mg po QD. Titrate to effect. No contraindications.not covered by insurance Start wellbutrin xl 150mg po QD May consider adding naltrexone (contrave) at next visit. Code(s): E66.01 - Morbid (severe) obesity due to excess calories; Z68.44 - Body mass index [BMI] 60.0-69.9, adult Qualifiers: Obesity type: due to excess calories Qualified Code(s): E66.01 - Morbid (severe) obesity due to excess calories; Z68.44 - Body mass index [BMI] 60.0-69.9, adult Plan This note is constructed using voice recognition software. While every effort has been made to ensure accuracy in candy puller, still errors may have been included Sometimes, these errors may affect the content or meaning of the given sentence . Total time spent caring for the patient today was 41 minutes. This includes time spent before the visit reviewing the chart, time spent during the visit, and time spent after the visit on documentation Medications: New bupropion HCl XL (Wellbutrin XL) 150 mg PO QAM 90 tabs 0RF Patient Instructions: Plan Add wellbutrin xl 150mg po QD to see if this helps with weight loss. Cont care w/ Vascular Continue blood pressure medications 30 min in January HTN, lipids, wt loss, repeat fasting labs 1 week before. Coding Level of Care Code Est Pt Level 5 (45502) Diagnoses Primary hypertension I10 Hypertension type: primary hypertension PAD (peripheral artery disease) I73.9 Class 3 severe obesity due to excess calories with serious comorbidity and body mass index (BMI) of 60.0 to 69.9 in adult E66.01; Z68.44 Obesity type: due to excess calories
[2023-12-21 10:48] VITALS: BP 138/80
== END 2023-12-21 10:56 | disposition home or self-care (01) ==
PROVIDERS: PCP Nurse Practitioner Family; Visit Provider Nurse Practitioner Family
DX: I10 Essential (primary) hypertension (principal); I73.9 Peripheral vascular disease, unspecified; E66.01 Morbid (severe) obesity due to excess calories; Z68.44 Body mass index [BMI] 60.0-69.9, adult
CPT/HCPCS: 99215

== ENCOUNTER 2024-01-25 07:31 | Outpatient (REF) | payer OTHER, SELFPAY ==
[2024-01-25 11:37] LABS: Estimated Average Glucose 148 mg/dL; Hemoglobin A1c % 6.8 % (<6.0)
[2024-01-25 11:49] LABS: Alanine Aminotransferase 22 U/L (0-31); Albumin Level 4.2 g/dL (3.5-5.0); Alkaline Phosphatase 80 U/L (39-117); Anion Gap 18 (12-20); Aspartate Amino Transferase 18 U/L (5-31); Blood Urea Nitrogen 29 mg/dL (9-16); Carbon Dioxide 26 mmol/L (22-29); Chloride 99 mmol/L (96-108); Cholesterol 141 mg/dL (<200); Estimated Glomerular Filt Rate > 60; Glucose Fasting 136 mg/dL (60-99); HDL Cholesterol 36 mg/dL (>40); LDL Cholesterol Calculated 90 mg/dL (<100); Potassium 3.4 mmol/L (3.3-5.1); Sodium 140 mmol/L (135-145); Total Protein 7.4 g/dL (6.5-8.0); Triglycerides 78 mg/dL (<150)
== END 2024-01-25 07:32 | disposition home or self-care (01) ==
LOC: HO.WFDLDS 07:31
PROVIDERS: Visit Provider Nurse Practitioner Family
DX: I10 Essential (primary) hypertension (principal); R73.03 Prediabetes; I70.238 Atherosclerosis of native arteries of right leg with ulceration of other part of lower leg; I70.248 Atherosclerosis of native arteries of left leg with ulceration of other part of lower leg; E66.01 Morbid (severe) obesity due to excess calories; Z68.44 Body mass index [BMI] 60.0-69.9, adult
CPT/HCPCS: 36415; 80053; 80061; 83036

== ENCOUNTER 2024-02-01 08:29 | Outpatient (AMB) | payer OTHER, SELFPAY ==
--- NOTE | 2024-02-01 08:32 | A.OFFPC_ITS ---
Vital Signs 02/01/24 08:41 BMI Reason not done Patient refused/unable BP 144/84 H Blood Pressure Location Lt radial Position Sitting Respiration 16 Pulse 89 Pulse Source Pulse Oximeter Temp 97.5 F Temp Source Oral Pulse Oximetry (%) 97 Oxygen Delivery Method Room Air Intake Visit Reasons: 30 min in January HTN, lipids, wt loss Intake Note: patient here for for HTN, Lipids, WT loss. Gynecologist Required: No Is last menstrual period known: Yes Last menstrual period: 01/18/24 Post menopausal: No Patient : No Allergies No Known Allergies Allergy (Verified 02/01/24 08:40) Medication List - Last Reconciled 02/01/24 by Ngoc Gambino, MEDICAL TECHNOLOGIST HEMATOLOGY- atorvastatin 40 mg PO BEDTIME bupropion HCl XL (Wellbutrin XL) 150 mg PO QAM gauze bandage (Band-Aid Rolled Gauze) As directed, use daily to lower ext open area until healed hydrochlorothiazide 25 mg PO DAILY white petrolatum (Petrolatum Gauze) As directed, apply to lower ext ulcer daily until healed Tobacco use date assessed: 09/19/23 Dental Screening Dental Screen Date: 09/19/23 HPI HPI Comments History of Present Illness Details 48-year-old female with PAD with ulcerat ion, obesity, hypertension, congenital blindness of the left eye xanthelasma of bilat eyelids, [place], DM2, lymphedema Health Maintenance: Colon DEXA Mammo Pap [facility] - 10/2023 exam Specialists: Optho Vascular Here today to fu on chronic conditions: new complaint: Falling asleep working lots of hours (84 hours) and unsure if thats what is causing it head feels really tight and light bothers her, nods off. Sleeps lightly and able to rouse easily. Falls asleep while talking and driving. Napping to try to cope and this does not help. In regards to wellbutrin, taking as directed and feeling more hunger. Eating a lot more. takng statin as directed, great improvement in her lipid profile BP well controlled on HCTZ. In regards to vascular does not want to fu with vascular anymore after consulting w/ her family. The ulcer is getting better. Aware of risks, cont to decline @ this time. Lab results from 01/25/2024 showed normal lytes, normal renal function, worsening fasting glucose 136, hemoglobin A1c is now 6.8% (was 6.2%), normal LFTs, improved lipid profile, total cholesterol 141, LDL 90, HDL 36, triglycerides 78 Exam: awake, alert NAD, chronically ill appearing, tearful when talking about health struggles. xenthelasma bilat RRR LS CTAB BLE with lymphedema & chronic hemosiderin changes, RLE with one vascular ulcer, healing w/o infection, JESUS ALBERTO. Skin is not warm to suggest infection. Shoes not removed for exam. Severely morbidly obese Plan: Stop wellbutrin as this has caused increased appetite. Cont statin @ current dose as lipid profile has improved START TRULICITY. 0.75 MG SUBQ Q.WEEK X4 THEN INCREASE TO 1.5 MG SUBQ Q.WEEK X4 WEEKS. Schedule an appointment with nurse navigator to instruct on the use of the medication. Advised if she has not able to tolerate the injections or has any insurance issues that she should reach out immediately. In regards to the hypersomnia, stat sleep study ordered. She does not wish to follow up with vascular at this time. She should continue to care for the ulcer of her right lower extremity, monitor for complications and alert me immediately if any arise. She has discontinue the [place] as she does not like the way it makes her skin feel. I would like to see her back in the office in about 6 weeks for 30 minute follow up of the above, sooner as needed. This note is constructed using voice recognition software. While every effort has been made to ensure accuracy in scarrer, still errors may have been included Sometimes, these errors may affect the content or meaning of the given sentence . Total time spent caring for the patient today was 45 minutes. This includes time spent before the visit reviewing the chart, time spent during the visit, and time spent after the visit on documentation [facility] Medical History Very rapid heartbeat HTN (hypertension) Congenital blindness PAD (peripheral artery disease) Surgical History History of cardiac catheterization History of surgery on lower extremity Family History Maternal Grandfather Alcoholism in family member Lung cancer Primary cancer of optic nerve Cardiovascular disease Mother Hypotension Father Hypertension High cholesterol Diabetes Sister Diabetes Social History Household Members: None Housing: Apartment Are you a primary primary care physician to a significant other at home: No Do you presently have visiting nurse or other home services: No 75 years or older and lives alone: No Alcohol intake: current Alcohol intake frequency: holidays/special occasions only Patient Tobacco Use Status: Never used Tobacco e-Cigarette/Vaping Use: Never Used service: No Current occupational status: employed Sexual orientation: Unable to collect Gender identity: Female Cognitive needs: No Hearing needs: No Vision needs: No Female Reproductive History Menstrual Date of last menstrual period: 01/18/24 Questionnaire Thrive Questionnaire Date Thrive assessed: 10/19/23 DARREL-7 AMB Questionnaire DARREL-7 Date DARREL - 7 assessed: 10/19/23 Source: Developed by Drs. Vinny Adams, Kathi Vazquez, Howie Correia and colleagues, with an educational efren from [employer]. Physical exam (Primary Care) Vital Signs: Last Vital Signs Temp 97.5 F 02/01/24 08:41 Pulse 89 02/01/24 08:41 Resp 16 02/01/24 08:41 BP 144/84 H 02/01/24 08:41 Pulse Ox 97 02/01/24 08:41 Oxygen Delivery Method Room Air 02/01/24 08:41 Tobacco/Smoking Status: Tobacco use Status Tobacco use date assessed 09/19/23 02/01/24 08:34 Patient Tobacco Use Status Never used Tobacco 02/01/24 08:34 e-Cigarette/Vaping Use Never Used 02/01/24 08:34 Thrive Assessment: Date of Thrive Assessment Date Thrive assessed 10/19/23 02/01/24 08:34 Assessment and Plan Assessment & Plan (1) DM type 2 causing complication: Comment: new dx est 01/2024 Code(s): E11.8 - Type 2 diabetes mellitus with unspecified complications (2) Class 3 severe obesity with serious comorbidity and body mass index (BMI) of 60.0 to 69.9 in adult: Comment: with HTN and PAD Code(s): E66.01 - Morbid (severe) obesity due to excess calories; Z68.44 - Body mass index [BMI] 60.0-69.9, adult Qualifiers: Obesity type: due to excess calories Qualified Code(s): E66.01 - Morbid (severe) obesity due to excess calories; Z68.44 - Body mass index [BMI] 60.0- 69.9, adult (3) Excessive daytime sleepiness: Code(s): G47.19 - Other hypersomnia (4) Hypersomnia: Code(s): G47.10 - Hypersomnia, unspecified (5) Lymphedema: Code(s): I89.0 - Lymphedema, not elsewhere classified (6) Atherosclerotic peripheral vascular disease with ulceration: Comment: referred to vasc surgery for eval and tx- declined fu cont Atorvastatin 40mg QD. Code(s): I70.209 - Unspecified atherosclerosis of [place] arteries of extremities, unspecified extremity; L98.499 - Non-pressure chronic ulcer of skin of other sites with unspecified severity Qualifiers: Peripheral atherosclerosis location: lower extremity Peripheral atherosclerosis artery type: [place] artery Laterality: bilateral Lower extremity ulceration location: other part of lower leg Qualified Code(s): I70.238 - Atherosclerosis of [place] arteries of right leg with ulceration of other part of lower leg; I70.248 - Atherosclerosis of [place] arteries of left leg with ulceration of other part of lower leg (7) HTN (hypertension): Comment: cont HCTZ 25mg po QD Goal <130/80 Code(s): I10 - Essential (primary) hypertension Qualifiers: Hypertension type: primary hypertension Qualified Code(s): I10 - Essential (primary) hypertension Orders: Orders RT home sleep study Today E66.01 - Morbid (severe) obesity due to excess calories, G47.10 - Hypersomnia, unspecified, G47.19 - Other hypersomnia, Z68.44 - Body mass index [BMI] 60.0-69.9, adult Medications: New dulaglutide Step up therapy after first 4 weeks. 1.5 mg (0.5 mL) subcut QWEEK 2 mL 0RF E11.8 - Type 2 diabetes mellitus with unspecified complications dulaglutide First 4 weeks, then go to the next RX which is 1.5 mg see new Rx for this 0.75 mg (0.5 mL) subcut QWEEK 2 mL 0RF E11.8 - Type 2 diabetes mellitus with unspecified complications Refilled atorvastatin 40 mg PO BEDTIME 90 tabs 0RF hydrochlorothiazide 25 mg PO DAILY 90 tabs 0RF Discontinued bupropion HCl XL (Wellbutrin XL) Discontinued Reason: Doctor's Order 150 mg PO QAM 90 tabs 0RF Coding Level of Care Code Est Pt Level 5 (94591) Complex EM visit Add On G2211 Diagnoses DM type 2 causing complication E11.8 Class 3 severe obesity due to excess calories with serious comorbidity and body mass index (BMI) of 60.0 to 69.9 in adult E66.01; Z68.44 Obesity type: due to excess calories Excessive daytime sleepiness G47.19 Hypersomnia G47.10 Lymphedema I89.0 Atherosclerosis of [place] artery of both lower extremities with bilateral ulceration of other part of lower legs I70.238; I70.248 Peripheral atherosclerosis location: lower extremity Peripheral atherosclerosis artery type: [place] artery Laterality: bilateral Lower extremity ulceration location: other part of lower leg Primary hypertension I10 Hypertension type: primary hypertension
[2024-02-01 08:41] VITALS: BP 144/84; PULSE 89; RESP 16; TEMP 36.4; O2SAT 97
== END 2024-02-01 09:25 | disposition home or self-care (01) ==
PROVIDERS: PCP Nurse Practitioner Family; Visit Provider Nurse Practitioner Family
DX: E11.8 Type 2 diabetes mellitus with unspecified complications (principal); E66.01 Morbid (severe) obesity due to excess calories; Z68.44 Body mass index [BMI] 60.0-69.9, adult; I70.238 Atherosclerosis of native arteries of right leg with ulceration of other part of lower leg; I70.248 Atherosclerosis of native arteries of left leg with ulceration of other part of lower leg; G47.19 Other hypersomnia; G47.10 Hypersomnia, unspecified; I89.0 Lymphedema, not elsewhere classified; I10 Essential (primary) hypertension
CPT/HCPCS: 99215

== ENCOUNTER 2024-03-27 11:41 | Outpatient (REF) | payer OTHER, SELFPAY ==
[2024-03-30 16:18] LABS: TS Negative Control Passed; TS Panel A 0; TS Panel B 2; TS Positive Control Passed; TSpotTB Negative (Negative)
== END 2024-03-27 11:42 | disposition home or self-care (01) ==
LOC: HO.HMGCLDS 11:41
PROVIDERS: PCP Nurse Practitioner Family; Visit Provider Nurse Practitioner Family
DX: Z11.1 Encounter for screening for respiratory tuberculosis (principal)
CPT/HCPCS: 36415; 86481

== ENCOUNTER 2024-03-29 09:51 | Outpatient (AMB) | payer OTHER, SELFPAY ==
--- NOTE | 2024-03-29 09:53 | MHC.PC.OV ---
Vital Signs 03/29/24 09:55 Height 6 ft 1 in BMI Reason not done Patient refused/unable BP 144/78 H Blood Pressure Location Lt brachial Position Sitting Respiration 16 Pulse 87 Pulse Source Pulse Oximeter Pulse Oximetry (%) 98 Oxygen Delivery Method Room Air Intake Visit Reasons: 6 wk 30 min f/u dm/ tdap/paperwork Intake Note: patient here for a follow up and fill out paperwork Allergies No Known Allergies Allergy (Verified 03/29/24 10:12) Medication List - Last Reconciled 03/29/24 by Ngoc Gambino, HOT METAL CRANE OPERATOR- atorvastatin 40 mg PO BEDTIME gauze bandage (Band-Aid Rolled Gauze) As directed, use daily to lower ext open area until healed hydrochlorothiazide 25 mg PO DAILY white petrolatum (Petrolatum Gauze) As directed, apply to lower ext ulcer daily until healed Tobacco use date assessed: 09/19/23 Dental Screening Dental Screen Date: 09/19/23 HPI HPI Comments History of Present Illness Details 48-year-old female with PAD with ulceration, obesity, hypertension, congenital blindness of the left eye xanthelasma of bilat eyelids, [place] [employer] [employer], DM2, lymphedema Health Maintenance: Colon DEXA Mammo Pap [facility] - 10/2023 exam Specialists: Optho Vascular Here today for a pre-employment physical TB spot done 03/27/24 and pending, no risks for tuberculosis [place]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 Same job responsibilities. Reviewed job details today. Will start as soon as she is cleared. In other regards, she did stop taking the Trulicity as she reports that it caused intolerable GI side effects. 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 Discuss with her today referral to bariatric office. She reports that she might have some insurance changes with the new job change and would like to hold off now. However she is open to discussing this She reports working hard to change her diet Does admit some depressive symptoms in relation to her job and finances. Denies any SI or HI. Exam: awake, alert NAD, chronically ill appearing, tearful when talking about health struggles. xenthelasma bilat RRR LS CTAB BLE with lymphedema & chronic hemosiderin changes, RLE with one vascular ulcer, healing w/o infection, JESUS [place]BERTO. Skin is not warm to suggest infection. Shoes not removed for exam. Severely morbidly obese Plan: Stop Trulicity as this caused GI side effects that were intolerable. Start metformin ER 500 mg once per day in the evening 30 minutes after meal. Call and schedule your sleep study before the next visit. Return to the office in about 8 weeks with fasting labs done 1 week before for routine follow up, sooner as needed Paperwork completed for her to work. While she is not in the best physical health, this job is sedentary. She has been able to maintain this job and another company without any issues therefore I feel she is cleared to work. TB spot pending. Form to be mailed to her once results are back. Consider referral to bariatric clinic once her insurance is confirmed with a new job change. We will need to monitor mood as she does endorse some depressive symptoms and is not currently on any medications. This note is constructed using voice recognition software. While every effort has been made to ensure accuracy in group exercise instructor, still errors may have been included Sometimes, these errors may affect the content or meaning of the given sentence . Total time spent caring for the patient today was 45 minutes. This includes time spent before the visit reviewing the chart, time spent during the visit, and time spent after the visit on documentation [facility] Medical History Very rapid heartbeat HTN (hypertension) Congenital blindness PAD (peripheral artery disease) Surgical History History of cardiac catheterization History of surgery on lower extremity Family History Maternal Grandfather Alcoholism in family member Lung cancer Primary cancer of optic nerve Cardiovascular disease Mother Hypotension Father Hypertension High cholesterol Diabetes Sister Diabetes Social History Household Members: None Housing: Apartment Are you a primary child daycare worker to a significant other at home: No Do you presently have visiting nurse or other home services: No 75 years or older and lives alone: No Alcohol intake: current Alcohol intake frequency: holidays/special occasions only Patient Tobacco Use Status: Never used Tobacco e-Cigarette/Vaping Use: Never Used service: No Current occupational status: employed Sexual orientation: Unable to collect Gender identity: Female Cognitive needs: No Hearing needs: No Vision needs: No Questionnaire Thrive Questionnaire Date Thrive assessed: 10/19/23 DARREL-7 AMB Questionnaire DARREL-7 Date DARREL - 7 assessed: 10/19/23 Source: Developed by Drs. Vinny Adams, Kathi Vazquez, Howie Correia and colleagues, with an educational efren from [employer]. Physical exam (Primary Care) Vital Signs: Last Vital Signs Pulse 87 03/29/24 09:55 Resp 16 03/29/24 09:55 BP 144/78 H 03/29/24 09:55 Pulse Ox 98 03/29/24 09:55 Oxygen Delivery Method Room Air 03/29/24 09:55 Tobacco/Smoking Status: Tobacco use Status Tobacco use date assessed 09/19/23 03/29/24 09:54 Patient Tobacco Use Status Never used Tobacco 03/29/24 09:54 e-Cigarette/Vaping Use Never Used 03/29/24 09:54 Thrive Assessment: Date of Thrive Assessment Date Thrive assessed 10/19/23 03/29/24 09:54 Assessment and Plan Assessment & Plan (1) Physical exam, pre-employment: Code(s): Z02.1 - Encounter for pre-employment examination (2) Atherosclerotic peripheral vascular disease with ulceration: Comment: referred to vasc surgery for eval and tx- declined fu cont Atorvastatin 40mg QD. Code(s): I70.209 - Unspecified atherosclerosis of [place] arteries of extremities, unspecified extremity; L98.499 - Non-pressure chronic ulcer of skin of other sites with unspecified severity Qualifiers: Laterality: bilateral Lower extremity ulceration location: other part of lower leg Peripheral atherosclerosis artery type: [place] artery Peripheral atherosclerosis location: lower extremity Qualified Code(s): I70.238 - Atherosclerosis of [place] arteries of right leg with ulceration of other part of lower leg; I70.248 - Atherosclerosis of [place] arteries of left leg with ulceration of other part of lower leg (3) DM type 2 causing complication: Comment: new dx est 01/2024 Code(s): E11.8 - Type 2 diabetes mellitus with unspecified complications (4) Encounter for screening for respiratory tuberculosis: Code(s): Z11.1 - Encounter for screening for respiratory tuberculosis (5) Class 3 severe obesity with serious comorbidity and body mass index (BMI) of 60.0 to 69.9 in adult: Comment: with HTN and PAD Code(s): E66.01 - Morbid (severe) obesity due to excess calories; Z68.44 - Body mass index [BMI] 60.0-69.9, adult Qualifiers: Obesity type: due to excess calories Qualified Code(s): E66.01 - Morbid (severe) obesity due to excess calories; Z68.44 - Body mass index [BMI] 60.0-69.9, adult Orders: Orders Comprehensive [place]. Panel Fast 05/12/24 E11.8 - Type 2 diabetes mellitus with unspecified complications, I70.238 - Atherosclerosis of [place] arteries of right leg with ulceration of other part of lower leg, I70.248 - Atherosclerosis of [place] arteries of left leg with ulceration of other part of lower leg Hemoglobin A1c 05/12/24 E11.8 - Type 2 diabetes mellitus with unspecified complications, I70.238 - Atherosclerosis of [place] arteries of right leg with ulceration of other part of lower leg, I70.248 - Atherosclerosis of [place] arteries of left leg with ulceration of other part of lower leg Lipid Panel 05/12/24 E11.8 - Type 2 diabetes mellitus with unspecified complications, I70.238 - Atherosclerosis of [place] arteries of right leg with ulceration of other part of lower leg, I70.248 - Atherosclerosis of [place] arteries of left leg with ulceration of other part of lower leg Medications: New metformin ER 500 mg PO QPM 90 tabs 0RF Coding Level of Care Code Est Pt Level 5 (05721) Complex EM visit Add On G2211 Diagnoses Physical exam, pre-employment Z02.1 Atherosclerosis of [place] artery of both lower extremities with bilateral ulceration of other part of lower legs I70.238; I70.248 Laterality: bilateral Lower extremity ulceration location: other part of lower leg Peripheral atherosclerosis artery type: [place] artery Peripheral atherosclerosis location: lower extremity DM type 2 causing complication E11.8 Encounter for screening for respiratory tuberculosis Z11.1 Class 3 severe obesity due to excess calories with serious comorbidity and body mass index (BMI) of 60.0 to 69.9 in adult E66.01; Z68.44 Obesity type: due to excess calories
[2024-03-29 09:55] VITALS: BP 144/78; PULSE 87; RESP 16; O2SAT 98
== END 2024-03-29 10:25 | disposition home or self-care (01) ==
PROVIDERS: PCP Nurse Practitioner Family; Visit Provider Nurse Practitioner Family
DX: I70.238 Atherosclerosis of native arteries of right leg with ulceration of other part of lower leg (principal); I70.248 Atherosclerosis of native arteries of left leg with ulceration of other part of lower leg; E66.01 Morbid (severe) obesity due to excess calories; Z68.44 Body mass index [BMI] 60.0-69.9, adult; E11.8 Type 2 diabetes mellitus with unspecified complications; Z11.1 Encounter for screening for respiratory tuberculosis

== ENCOUNTER → 2024-03-29 09:51 | Outpatient (BNVA) | payer OTHER, SELFPAY | PROVIDERS: PCP Nurse Practitioner Family; Visit Provider Nurse Practitioner Family | DX: Z02.1 Encounter for pre-employment examination (principal); I70.238 Atherosclerosis of native arteries of right leg with ulceration of other part of lower leg; L97.819 Non-pressure chronic ulcer of other part of right lower leg with unspecified severity; I70.248 Atherosclerosis of native arteries of left leg with ulceration of other part of lower leg; L97.829 Non-pressure chronic ulcer of other part of left lower leg with unspecified severity; E11.8 Type 2 diabetes mellitus with unspecified complications; E66.01 Morbid (severe) obesity due to excess calories; Z68.44 Body mass index [BMI] 60.0-69.9, adult ==

== ENCOUNTER 2024-05-23 07:33 | Outpatient (REF) | payer OTHER, SELFPAY ==
[2024-05-23 11:29] LABS: Alanine Aminotransferase 20 U/L (0-31); Albumin Level 4.1 g/dL (3.5-5.0); Alkaline Phosphatase 70 U/L (39-117); Anion Gap 11 (12-20); Aspartate Amino Transferase 25 U/L (5-31); Bilirubin Total 1.2 mg/dL (0.0-1.0); Blood Urea Nitrogen 22 mg/dL (9-16); Calcium 9.4 mg/dL (8.4-10.2); Carbon Dioxide 33 mmol/L (22-29); Chloride 97 mmol/L (96-108); Cholesterol 111 mg/dL (<200); Estimated Glomerular Filt Rate > 60; Glucose Fasting 124 mg/dL (60-99); HDL Cholesterol 31 mg/dL (>40); LDL Cholesterol Calculated 61 mg/dL (<100); Potassium 3.4 mmol/L (3.3-5.1); Sodium 138 mmol/L (135-145); Total Protein 7.1 g/dL (6.5-8.0); Triglycerides 96 mg/dL (<150)
[2024-05-23 14:29] LABS: Estimated Average Glucose 134 mg/dL; Hemoglobin A1C 144.0255 umol/L; Hemoglobin A1c % 6.3 % (<6.0); Total Hemoglobin (HGBA1C) 3160.6265 umol/L
== END 2024-05-23 07:34 | disposition home or self-care (01) ==
LOC: HO.WFDLDS 07:33
PROVIDERS: Visit Provider Nurse Practitioner Family
DX: E11.8 Type 2 diabetes mellitus with unspecified complications (principal); I70.238 Atherosclerosis of native arteries of right leg with ulceration of other part of lower leg; I70.248 Atherosclerosis of native arteries of left leg with ulceration of other part of lower leg
CPT/HCPCS: 36415; 80053; 80061; 83036

== ENCOUNTER 2024-05-24 08:29 | Outpatient (AMB) | payer OTHER, SELFPAY ==
--- NOTE | 2024-05-24 08:33 | MHC.PC.OV ---
Vital Signs 05/24/24 08:34 Height 6 ft 1 in BMI Reason not done Patient refused/unable BP 140/76 H Blood Pressure Location Rt brachial Position Sitting Pulse 79 Pulse Source Pulse Oximeter Pulse Oximetry (%) 96 Oxygen Delivery Method Room Air Intake Visit Reasons: 8 weeks 30 min fu labs 1 week before routine Intake Note: Patient is here to follow up on Lab results. Pt decline flu shot today. Optical Coating Technician Required: No Pasta Press Operator: Not Required per policy Accompanied by: Self / Same As Patient Allergies No Known Allergies Allergy (Verified 05/24/24 08:49) Medication List - Last Reconciled 05/24/24 by Ngco Gambino, WAREHOUSE ASSISTANT-BC atorvastatin 40 mg PO BEDTIME gauze bandage (Band-Aid Rolled Gauze) As directed, use daily to lower ext open area until healed hydrochlorothiazide 25 mg PO DAILY metformin ER 500 mg PO QPM white petrolatum (Petrolatum Gauze) As directed, apply to lower ext ulcer daily until healed Tobacco use date assessed: 05/24/24 Dental Screening Dental Screen Date: 09/19/23 HPI HPI Comments History of Present Illness Details 48-year-old female with PAD with ulceration, obesity, hypertension, 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 Finances are still tight but improved. Bariatrics - insurance is all set, she is open to this referral. Sleep study - needs to reschedule, she will work on this. Reviewed again today. She is taking all of her meds as directed. Working hard to work on her diet and activity. Highly motivated by avoiding having to use insulin. Reviewed the following with her: Labs from 05/23/2024 show normal renal function, normal electrolytes, improvement in fasting glucose 124, hemoglobin A1c is also improved now 6.3%, it was 6.8%, normal calcium, normal total bilirubin, normal LFTs, improved lipid profile LDL is 61 HDL remains low 31 New problems today: New ulcer of RLE with weeping and pain. Has been applying Xeroform dressing, the skin is warm and blistered. Would like muscle relaxer for her back, has spasms. Has chronic pain and bilat knees. Reports that the pain in her left knee is worse than it has been. This limits her physical abilities. She is trying really hard to increase her steps and mobility to lose weight. The pain in her knee is limiting her. Wonders what can be done with this. Denies any new injury. Ambulating with a cane. Exam: awake, alert NAD, chronically ill appearing xenthelasma bilat RRR LS CTAB Right knee painful active and passive ROM, antalgic gait favoring L side BLE with lymphedema & chronic hemosiderin changes, RLE with one vascular ulcer, + infection, see pic Shoes not removed for exam. Severely morbidly obese Start Her labs have greatly improved. She overall feels much better. We will have her continue the metformin. We will start Farxiga 10 mg p.o. q.a.m. to help not only with her diabetes but also to aid in weight loss, for renal protection, cardiac protection. Refer to bariatric for obesity treatment. Blood pressure is well controlled on hydrochlorothiazide 25 mg p.o. daily. She should continue to take this as directed. She has an increase in edema in bilateral lower extremities, worse on the right. I will give her a prescription for Lasix 40 mg p.o. b.i.d.. Advised to take for 5 days with potassium rich foods as there is a risk for potassium loss with the hydrochlorothiazide and furosemide. After 5 days it was okay to take only as needed. We will need to treat the cellulitis with Augmentin 1 tab p.o. b.i.d. for 10 days. She can continue with Xeroform gauze dressings until I see her again. Refer to orthopedics for her left knee pain P.r.n. Skelaxin 400 mg to be used sparingly to help with muscle spasms. Advised to schedule sleep study JERICHO Return to office in 2-3 weeks to re-evaluate the cellulitis of the right lower extremity. Sooner if needed. This note is constructed using voice recognition software. While every effort has been made to ensure accuracy in automotive lube technician, still errors may have been included Sometimes, these errors may affect the content or meaning of the given sentence . Total time spent caring for the patient today was 50 minutes. This includes time spent before the visit reviewing the chart, time spent during the visit, and time spent after the visit on documentation [facility] Medical History Very rapid heartbeat HTN (hypertension) Congenital blindness PAD (peripheral artery disease) Surgical History History of cardiac catheterization History of surgery on lower extremity Family History Maternal Grandfather Alcoholism in family member Lung cancer Primary cancer of optic nerve Cardiovascular disease Mother Hypotension Father Hypertension High cholesterol Diabetes Sister Diabetes Social History Household Members: None Housing: Apartment Are you a primary transitions rn care coordinator to a significant other at home: No Do you presently have visiting nurse or other home services: No 75 years or older and lives alone: No Alcohol intake: current Alcohol intake frequency: holidays/special occasions only Patient Tobacco Use Status: Never used Tobacco e-Cigarette/Vaping Use: Never Used Second Hand Smoke Exposure: No service: No Current occupational status: employed Sexual orientation: Unable to collect Gender identity: Female Cognitive needs: No Hearing needs: No Vision needs: No Questionnaire Thrive Questionnaire Date Thrive assessed: 05/24/24 I am a: Patient What is your living situation today?: I have a steady place to live Within the past 12 months, did the food you bought not last and you didn't have the money to get more?: I choose not to answer this question Within the past 12 months, did you worry whether your food would run out before you got money to buy more?: I choose not to answer this question Do you have trouble paying for medicines?: I choose not to answer this question Do you have trouble getting transportation to medical appointments?: I choose not to answer this question Do you have trouble paying your heating and electricity bill?: I choose not to answer this question Do you have trouble taking care of your child, family member or friend?: I choose not to answer this question Do you have trouble with day-to-day activities such as bathing, preparing meals, shopping, managing finances, etc.?: I choose not to answer this question Are you currently unemployed and looking for a job?: I choose not to answer this question Are you interested in more education?: I choose not to answer this question Please select the resources that you would like help with: None Currently or been in a relationship where the following occur: I choose not to answer THRIVE Score: 0 AUDIT C Alcohol Use Questionnaire (AUDIT-C) 1. How often do you have a drink containing alcohol?: Never Total Score: 0 DARREL-7 AMB Questionnaire DARREL-7 Date DARREL - 7 assessed: 05/24/24 Feeling nervous, anxious, or on edge: 0 = Not at all Not being able to stop or control worryin = Not at all Worrying too much about different things: 0 = Not at all Trouble relaxin = Not at all Being so restless that it is hard to sit still: 0 = Not at all Becoming easily annoyed or irritable: 0 = Not at all Feeling afraid as if something awful might happen: 0 = Not at all Total DARREL-7 score (0-4 normal; 5-9 mild; 10-14 moderate; 15-21 severe): 0 Source: Developed by Drs. Vinny Adams, Kathi Vazquez, Howie Correia and colleagues, with an educational efren from [employer]. Physical exam (Primary Care) Tobacco/Smoking Status: Tobacco use Status Tobacco use date assessed 09/19/23 03/29/24 09:54 Patient Tobacco Use Status Never used Tobacco 03/29/24 09:54 e-Cigarette/Vaping Use Never Used 03/29/24 09:54 Thrive Assessment: Date of Thrive Assessment Date Thrive assessed 10/19/23 03/29/24 09:54 Currently or been in a relationship where the following occur: I choose not to answer Coding Level of Care Code Est Pt Level 5 (46983) Complex EM visit Add On G2211 Diagnoses DM type 2 causing complication E11.8 Hypersomnia G47.10 Excessive daytime sleepiness G47.19 Lymphedema I89.0 Varicose veins of right lower extremity with inflammation I83.11 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 of other part of lower legs I70.238; I70.248 Peripheral atherosclerosis location: lower extremity Peripheral atherosclerosis artery type: shawnee artery Laterality: bilateral Lower extremity ulceration location: other part of lower leg Class 3 severe obesity due to excess calories with serious comorbidity and body mass index (BMI) of 60.0 to 69.9 in adult E66.01; Z68.44 Obesity type: due to excess calories Primary hypertension I10 Hypertension type: primary hypertension PAD (peripheral artery disease) I73.9 BMI 60.0-69.9, adult Z68.44 Chronic pain of left knee M25.562; G89.29 Chronicity: chronic Spasm of back muscles M62.830 Cellulitis of leg, right L03.115 Assessment & Plan Assessment & Plan (1) DM type 2 causing complication: Comment: new dx est 01/2024 Code(s): E11.8 - Type 2 diabetes mellitus with unspecified complications Category: Medical Plan: . (2) Hypersomnia: Code(s): G47.10 - Hypersomnia, unspecified Category: Medical Plan: . (3) Excessive daytime sleepiness: Code(s): G47.19 - Other hypersomnia Category: Medical Plan: . (4) Lymphedema: Comment: BLE Code(s): I89.0 - Lymphedema, not elsewhere classified Category: Medical Plan: . (5) Varicose veins of right lower extremity with inflammation: Code(s): I83.11 - Varicose veins of right lower extremity with inflammation Category: Medical Plan: . (6) Atherosclerotic peripheral vascular disease with ulceration: Comment: referred to vasc surgery for eval and tx- declined fu cont Atorvastatin 40mg QD. Code(s): I70.209 - Unspecified atherosclerosis of shawnee arteries of extremities, unspecified extremity; L98.499 - Non-pressure chronic ulcer of skin of other sites with unspecified severity Category: Medical Qualifiers: Peripheral atherosclerosis location: lower extremity Peripheral atherosclerosis artery type: shawnee artery Laterality: bilateral Lower extremity ulceration location: other part of lower leg Qualified Code(s): I70.238 - Atherosclerosis of shawnee arteries of right leg with ulceration of other part of lower leg; I70.248 - Atherosclerosis of shawnee arteries of left leg with ulceration of other part of lower leg Plan: . (7) Class 3 severe obesity with serious comorbidity and body mass index (BMI) of 60.0 to 69.9 in adult: Comment: with HTN and PAD Code(s): E66.01 - Morbid (severe) obesity due to excess calories; Z68.44 - Body mass index [BMI] 60.0-69.9, adult Category: Medical Qualifiers: Obesity type: due to excess calories Qualified Code(s): E66.01 - Morbid (severe) obesity due to excess calories; Z68.44 - Body mass index [BMI] 60.0-69.9, adult Plan: . (8) HTN (hypertension): Comment: cont HCTZ 25mg po QD Goal <130/80 Code(s): I10 - Essential (primary) hypertension Category: Medical Qualifiers: Hypertension type: primary hypertension Qualified Code(s): I10 - Essential (primary) hypertension Plan: . (9) PAD (peripheral artery disease): Comment: affecting BLE w/ ulcers of RLE Referred to vascular surgery declined fu Code(s): I73.9 - Peripheral vascular disease, unspecified Category: Medical Plan: . (10) BMI 60.0-69.9, adult: Code(s): Z68.44 - Body mass index [BMI] 60.0-69.9, adult Category: Medical Plan: . (11) Left knee pain: Code(s): M25.562 - Pain in left knee Category: Medical Qualifiers: Chronicity: chronic Qualified Code(s): M25.562 - Pain in left knee; G89.29 - Other chronic pain Plan: . (12) Spasm of back muscles: Code(s): M62.830 - Muscle spasm of back Category: Medical Plan: . (13) Cellulitis of leg, right: Code(s): L03.115 - Cellulitis of right lower limb Category: Medical Plan: . Orders: Referrals Bariatric Surgery Referral E66.01 - Morbid (severe) obesity due to excess calories, Z68.44 - Body mass index [BMI] 60.0-69.9, adult Orthopedics Referral M25.562 - Pain in left knee Medications: New furosemide take for 5 days, then STOP and only use as needed for swelling of lower ext 40 mg PO BID PRN 60 tabs 0RF edema amoxicillin-pot clavulanate 875-125 mg 1 tab PO Q12H 10 days 20 tabs 0RF metaxalone 400 mg PO ONCE PRN 14 tabs 0RF muscle pain dapagliflozin propanediol (Farxiga) 10 mg PO QAM 90 tabs 0RF Refilled atorvastatin 40 mg PO BEDTIME 90 tabs 0RF metformin ER 500 mg PO QPM 90 tabs 0RF hydrochlorothiazide 25 mg PO DAILY 90 tabs 0RF
[2024-05-24 08:34] VITALS: BP 140/76; PULSE 79; O2SAT 96
== END 2024-05-24 09:20 | disposition home or self-care (01) ==
PROVIDERS: PCP Nurse Practitioner Family; Visit Provider Nurse Practitioner Family
DX: E11.8 Type 2 diabetes mellitus with unspecified complications (principal); I70.238 Atherosclerosis of native arteries of right leg with ulceration of other part of lower leg; E66.01 Morbid (severe) obesity due to excess calories; Z68.44 Body mass index [BMI] 60.0-69.9, adult; I70.248 Atherosclerosis of native arteries of left leg with ulceration of other part of lower leg; I73.9 Peripheral vascular disease, unspecified; G47.10 Hypersomnia, unspecified; G47.19 Other hypersomnia; I89.0 Lymphedema, not elsewhere classified; I83.11 Varicose veins of right lower extremity with inflammation; I10 Essential (primary) hypertension; M25.562 Pain in left knee

== ENCOUNTER 2024-06-14 07:47 | Outpatient (AMB) | payer OTHER, SELFPAY ==
--- NOTE | 2024-06-14 08:01 | A.OFFPC_ITS ---
Vital Signs 3 06/14/24 08:08 06/14/24 08:32 Height 6 ft 1 in 6 ft 1 in Weight 514 lb BMI 67.8 BMI Reason not done Patient refused/unable BP 173/79 H 150/80 H Blood Pressure Location Rt brachial Rt radial Position Sitting Sitting Respiration 15 Pulse 70 Pulse Source Pulse Oximeter Pulse Oximetry (%) 100 Oxygen Delivery Method Room Air Intake Visit Reasons: 2-3 weeks fu on cellulitis and edema 30 min Intake Note: follow up on cellulitis and edema Clinical Services Assistant Required: No Allergies No Known Allergies Allergy (Verified 06/14/24 08:08) Medication List - Last Reconciled 06/14/24 by Ngoc Gambino, COATING OPERATOR- atorvastatin 40 mg PO BEDTIME dapagliflozin propanediol (Farxiga) 10 mg PO QAM gauze bandage (Band-Aid Rolled Gauze) As directed, use daily to lower ext open area until healed hydrochlorothiazide 25 mg PO DAILY metaxalone 400 mg PO DAILY metformin ER 500 mg PO QPM white petrolatum (Petrolatum Gauze) As directed, apply to lower ext ulcer daily until healed Tobacco use date assessed: 05/24/24 Dental Screening Dental Screen Date: 09/19/23 HPI HPI Comments 2 History of Present Illness0 Details 48-year-old female with PAD with ulcerat ion, obesity, hypertension, 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 The swelling has been ongoing and appears to be hereditary, as she has a family history of similar issues. Previously, the patient experienced an infection in the leg, which has resolved after a course of antibiotics. She developed significant stomach cramping and bladder spasms after taking furosemide (Lasix), which was prescribed as a diuretic to manage the swelling. She discontinued the medication due to these adverse effects despite its effectiveness in reducing edema. No alternative diuretic therapy had been started prior to the visit. In addition to the swelling, she struggles with diabetes mellitus and has been using Farxiga for blood glucose management, although this medication was not initially filled as intended. The patient also notes a familial predisposition to obesity. - Diet: Reported difficulties with weigh t management, diet influenced by familial cooking habits, experiences recurrent feasting, particularly during holidays. She had intake appt scheduled today w [facility], missed as she had this appt @ same time. Review of Systems - Gastrointestinal: Reports stomach cram ping (associated with furosemide use). - Genitourinary: Denies increased urinat ion as a primary concern; reports bladder spasms. - Musculoskeletal: Reports leg soreness. - Cardiovascular: Denies chest pain or p alpitations. Plan - Discontinue furosemide due to adverse gastrointestinal effects. - Initiate torsemide to manage lower ext remity edema 1 tablet daily for five days, then as needed). - Prescribe Jardiance to support diabete s management and provide additional diuretic benefits. - Continue use of metformin for diabetes management. - Refill and prescribe all necessary med ications ensuring full coverage and availability. - Arrange follow-up in five weeks to ass ess symptom progression and effectiveness of new treatment regimen. Patient was informed and verbally consented to the use of an ambient scribe for clinic note documentation during this visit. Discussion Notes During the visit, I discussed with the patient the necessity to manage her lower extremity swelling to prevent skin complications. A shift from furosemide to torsemide was agreed upon due to the side effects experienced. I provided education on the role of Jardiance in diabetes management and its additional benefits in reducing fluid retention, alongside cardiovascular and renal protection, affirming the importance of adhering to prescribed diabetes medications. I affirmed the need for adjusting her care in response to the pharmacy issues previously encountered. We reviewed the non-requirement of fasting for upcoming blood work and the weight management consultation's purpose, addressing her concerns regarding surgical weight loss options based on her mother's historical experiences. I advised her to monitor her symptoms and keep appointments that are conducive to her work schedule to facilitate ongoing care management. - Discussion of blood glucose management and the cardioprotective and renoprotective benefits of diabetes medication adjustments (e.g., initiation of Jardiance). - Emphasis on the importance of managing swelling to prevent complications related to skin integrity. Patient Instructions - Discontinue furosemide immediately. - Begin taking torsemide as prescribed f or swelling. - Start Jardiance alongside current diab etes medications. - Continue monitoring blood glucose and adhere to dietary modifications. - Arrange non-fasting blood tests ahead of the next appointment. - Follow up in five weeks to evaluate th e impact of medication changes and swelling management. - Maintain leg elevation as much as poss ible to alleviate edema. - Contact the office should any concerns or worsening symptoms arise. - Keep regular appointments with weight management services, as discussed. I sent message to [facility] explaining her cancellation of todays appt and requesting new appt to be scheduled. Exam: awake, alert NAD, chronically ill appearing xenthelasma bilat RRR LS CTAB Right knee painful active and passive ROM, antalgic gait favoring L side BLE with lymphedema & chronic hemosiderin changes, RLE with one vascular ulcer, see pic Shoes not removed for exam. Severely morbidly obese Total time spent caring for the patient today was 45 minutes. This includes time spent before the visit reviewing the chart, time spent during the visit, and time spent after the visit on documentation [facility] Medical History Very rapid heartbeat HTN (hypertension) Congenital blindness PAD (peripheral artery disease) Surgical History History of cardiac catheterization History of surgery on lower extremity Family History Maternal Grandfather Alcoholism in family member Lung cancer Primary cancer of optic nerve Cardiovascular disease Mother Hypotension Father Hypertension High cholesterol Diabetes Sister Diabetes Social History Household Members: None Housing: Apartment Are you a primary care nurse rn to a significant other at home: No Do you presently have visiting nurse or other home services: No 75 years or older and lives alone: No Alcohol intake: current Alcohol intake frequency: holidays/special occasions only Patient Tobacco Use Status: Never used Tobacco e-Cigarette/Vaping Use: Never Used Second Hand Smoke Exposure: No service: No Current occupational status: employed Sexual orientation: Unable to collect Gender identity: Female Cognitive needs: No Hearing needs: No Vision needs: No Questionnaire PHQ-9 Over the last 2 weeks, how often have you been bothered by any of the following problems? [id number] - PHQ-9 Billing: Patient declined-do not bill Source: Developed by Drs. Vinny Adams, Kathi Vazquez, Howie Correia and colleagues, with an educational efren from [employer]. Thrive Questionnaire Date Thrive assessed: 06/14/24 I am a: Patient What is your living situation today?: I have a steady place to live Within the past 12 months, did the food you bought not last and you didn't have the money to get more?: I choose not to answer this question Within the past 12 months, did you worry whether your food would run out before you got money to buy more?: I choose not to answer this question Do you have trouble paying for medicines?: I choose not to answer this question Do you have trouble getting transportation to medical appointments?: I choose not to answer this question Do you have trouble paying your heating and electricity bill?: I choose not to answer this question Do you have trouble taking care of your child, family member or friend?: I choose not to answer this question Do you have trouble with day-to-day activities such as bathing, preparing meals, shopping, managing finances, etc.?: I choose not to answer this question Are you currently unemployed and looking for a job?: I choose not to answer this question Are you interested in more education?: I choose not to answer this question Please select the resources that you would like help with: None Currently or been in a relationship where the following occur: I choose not to answer THRIVE Score: 0 DARREL-7 AMB Questionnaire DARREL-7 Date DARREL - 7 assessed: 05/24/24 Source: Developed by Drs. Vinny Adams, Kathi Vazquez, Howie Correia and colleagues, with an educational efren from [employer]. Physical exam (Primary Care) Tobacco/Smoking Status: Tobacco use Status Tobacco use date assessed 05/24/24 06/14/24 08:01 Patient Tobacco Use Status Never used Tobacco 06/14/24 08:01 e-Cigarette/Vaping Use Never Used 06/14/24 08:01 Thrive Assessment: Date of Thrive Assessment Date Thrive assessed 05/24/24 06/14/24 08:01 Currently or been in a relationship where the following occur: I choose not to answer Coding Level of Care Code Est Pt Level 5 (73162) Complex EM visit Add On G2211 Diagnoses Cellulitis of leg, right L03.115 Spasm of back muscles M62.830 DM type 2 causing complication E11.8 PAD (peripheral artery disease) I73.9 Primary hypertension I10 Hypertension type: primary hypertension Atherosclerosis of [place] artery of both lower extremities with bilateral ulceration of other part of lower legs I70.238; I70.248 Peripheral atherosclerosis location: lower extremity Peripheral atherosclerosis artery type: [place] artery Laterality: bilateral Lower extremity ulceration location: other part of lower leg Lymphedema I89.0 Assessment & Plan Assessment & Plan (1) Cellulitis of leg, right: Code(s): L03.115 - Cellulitis of right lower limb Category: Medical (2) Spasm of back muscles: Code(s): M62.830 - Muscle spasm of back Category: Medical (3) DM type 2 causing complication: Comment: new dx est 01/2024 Code(s): E11.8 - Type 2 diabetes mellitus with unspecified complications Category: Medical (4) PAD (peripheral artery disease): Comment: affecting BLE w/ ulcers of RLE Referred to vascular surgery declined fu Code(s): I73.9 - Peripheral vascular disease, unspecified Category: Medical (5) HTN (hypertension): Comment: cont HCTZ 25mg po QD Goal <130/80 Code(s): I10 - Essential (primary) hypertension Category: Medical Qualifiers: Hypertension type: primary hypertension Qualified Code(s): I10 - Essential (primary) hypertension (6) Atherosclerotic peripheral vascular disease with ulceration: Comment: referred to vasc surgery for eval and tx- declined fu cont Atorvastatin 40mg QD. Code(s): I70.209 - Unspecified atherosclerosis of [place] arteries of extremities, unspecified extremity; L98.499 - Non-pressure chronic ulcer of skin of other sites with unspecified severity Category: Medical Qualifiers: Peripheral atherosclerosis location: lower extremity Peripheral atherosclerosis artery type: [place] artery Laterality: bilateral Lower extremity ulceration location: other part of lower leg Qualified Code(s): I 70.238 - Atherosclerosis of [place] arteries of right leg with ulceration of other part of lower leg; I70.248 - Atherosclerosis of [place] arteries of left leg with ulceration of other part of lower leg (7) Lymphedema: Comment: BLE Code(s): I89.0 - Lymphedema, not elsewhere classified Category: Medical Plan . Orders: Orders 2 Comprehensive Met. Panel 1 Month E11.8 - Type 2 diabetes mellitus with unspecified complications, I10 - Essential (primary) hypertension, I70.238 - Atherosclerosis of [place] arteries of right leg with ulceration of other part of lower leg, I70.248 - Atherosclerosis of [place] arteries of left leg with ulceration of other part of lower leg, I73.9 - Peripheral vascular disease, unspecified, I89.0 - Lymphedema, not elsewhere classified Hemoglobin A1c 1 Month E11.8 - Type 2 diabetes mellitus with unspecified complications, I10 - Essential (primary) hypertension, I70.238 - Atherosclerosis of [place] arteries of right leg with ulceration of other part of lower leg, I70.248 - Atherosclerosis of [place] arteries of left leg with ulceration of other part of lower leg, I73.9 - Peripheral vascular disease, unspecified, I89.0 - Lymphedema, not elsewhere classified Lipid Panel 1 Month E11.8 - Type 2 diabetes mellitus with unspecified complications, I10 - Essential (primary) hypertension, I70.238 - Atherosclerosis of [place] arteries of right leg with ulceration of other part of lower leg, I70.248 - Atherosclerosis of [place] arteries of left leg with ulceration of other part of lower leg, I73.9 - Peripheral vascular disease, unspecified, I89.0 - Lymphedema, not elsewhere classified Medications: New 2 empagliflozin (Jardiance) 10 mg PO DAILY 90 tabs 0RF tizanidine (Zanaflex) 4 mg PO BEDTIME PRN 14 tabs 0RF muscle spasticity torsemide TAKE 1 TAB DAILY FOR 5 DAYS THEN NEEDED FOR SWELLING IN LOWER EXT 10 mg PO DAILY 30 tabs 0RF Discontinued 2 furosemide take for 5 days, then STOP and only use as needed for swelling of lower ext Discontinued Reason: Doctor's Order 40 mg PO BID PRN 60 tabs 0RF edema amoxicillin-pot clavulanate 875-125 mg Discontinued Reason: Patient Completed Course 1 tab PO Q12H 10 days 20 tabs 0RF metaxalone Discontinued Reason: Insurance Denied 400 mg PO DAILY 14 tabs 0RF for muscle pain dapagliflozin propanediol (Farxiga) Discontinued Reason: Insurance Denied 10 mg PO QAM 90 tabs 0RF
[2024-06-14 08:08] VITALS: BP 173/79; PULSE 70; RESP 15; O2SAT 100
[2024-06-14 08:32] VITALS: BP 150/80; BMI 67.8
== END 2024-06-14 08:46 | disposition home or self-care (01) ==
PROVIDERS: PCP Nurse Practitioner Family; Visit Provider Nurse Practitioner Family
DX: E11.8 Type 2 diabetes mellitus with unspecified complications (principal); I70.238 Atherosclerosis of native arteries of right leg with ulceration of other part of lower leg; I70.248 Atherosclerosis of native arteries of left leg with ulceration of other part of lower leg; L03.115 Cellulitis of right lower limb; M62.830 Muscle spasm of back; I10 Essential (primary) hypertension; I89.0 Lymphedema, not elsewhere classified

== ENCOUNTER 2024-07-31 10:54 | Outpatient (REF) | payer OTHER, SELFPAY ==
[2024-07-31 14:38] LABS: Estimated Average Glucose 134 mg/dL; Hemoglobin A1C 153.2939 umol/L; Hemoglobin A1c % 6.3 % (<6.0); Total Hemoglobin (HGBA1C) 3390.8366 umol/L
[2024-07-31 14:56] LABS: Alanine Aminotransferase 23 U/L (0-31); Albumin Level 4.2 g/dL (3.5-5.0); Alkaline Phosphatase 82 U/L (39-117); Anion Gap 11 (12-20); Aspartate Amino Transferase 23 U/L (5-31); Bilirubin Total 1.6 mg/dL (0.0-1.0); Blood Urea Nitrogen 17 mg/dL (9-16); Calcium 10.1 mg/dL (8.4-10.2); Carbon Dioxide 30 mmol/L (22-29); Chloride 100 mmol/L (96-108); Cholesterol 124 mg/dL (<200); Estimated Glomerular Filt Rate > 60; Glucose Random 102 mg/dL (60-115); HDL Cholesterol 37 mg/dL (>40); LDL Cholesterol Calculated 64 mg/dL (<100); Potassium 3.4 mmol/L (3.3-5.1); Sodium 138 mmol/L (135-145); Total Protein 8.1 g/dL (6.5-8.0); Triglycerides 115 mg/dL (<150)
== END 2024-07-31 10:55 | disposition home or self-care (01) ==
LOC: HO.WFDLDS 10:54
PROVIDERS: Visit Provider Nurse Practitioner Family
DX: E11.8 Type 2 diabetes mellitus with unspecified complications (principal); I70.248 Atherosclerosis of native arteries of left leg with ulceration of other part of lower leg; I70.238 Atherosclerosis of native arteries of right leg with ulceration of other part of lower leg; I10 Essential (primary) hypertension; I89.0 Lymphedema, not elsewhere classified
CPT/HCPCS: 36415; 80053; 80061; 83036

== ENCOUNTER 2024-08-02 08:31 | Outpatient (AMB) | payer OTHER, SELFPAY ==
--- NOTE | 2024-08-02 08:47 | MHC.PC.OV ---
Vital Signs 08/02/24 08:50 08/02/24 09:40 Height 6 ft 1 in BMI Reason not done Patient refused/unable BP 182/90 H 160/84 H Blood Pressure Location Lt femoral Lt brachial Position Sitting Sitting Respiration 14 Pulse 86 Pulse Source Pulse Oximeter Temp 97.5 F Temp Source Oral Pulse Oximetry (%) 98 Oxygen Delivery Method Room Air Intake Visit Reasons: 4 weeks 30 min fu labs/swelling Intake Note: follow up on labs Tomato Grader Required: No Allergies No Known Allergies Allergy (Verified 08/02/24 08:47) Medication List - Last Reconciled 08/02/24 by Ngoc Gambino, GOLF TECHNICIAN- atorvastatin 40 mg PO BEDTIME empagliflozin (Jardiance) 10 mg PO DAILY furosemide 40 mg PO BID gauze bandage (Band-Aid Rolled Gauze) As directed, use daily to lower ext open area until healed hydrochlorothiazide 25 mg PO DAILY metformin ER 500 mg PO QPM tizanidine (Zanaflex) 4 mg PO BEDTIME PRN torsemide 10 mg PO DAILY white petrolatum (Petrolatum Gauze) As directed, apply to lower ext ulcer daily until healed Tobacco use date assessed: 05/24/24 Dental Screening Dental Screen Date: 09/19/23 HPI HPI Comments History of Present Illness Details 48-year-old female with PAD with ulceration, obesity, hypertension, 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 The edema has been ongoing, and at her last office visit, she was prescribed torsemide and jardiance to aid in fluid reduction. She reports recent difficulties in obtaining medication refills, possibly due to insurance issues. Additionally, despite dietary indiscretions leading to worsening edema, the increased medication frequency (lasix) has helped reduce swelling and pain associated with the edema. did not have bladder spams this time using it. She mentioned dietary habits that included high sodium intake, contributing to edema exacerbation. Type 2 Diabetes Mellitus with an A1c level noted to be stable, Essential Hypertension, and Hyperlipidemia with cholesterol levels reported as improved. The patient also discussed previous occurrences of sores on her lower extremities, with some healing and others newly appearing, worsened by swelling but managed with topical treatment. She did receive a call from the bariatric clinic to reschedule her appointment but she did not call them back. She did attend her orthopedic appointment however could not physically walk-in to the building therefore did not go. - Full-time employment with erratic work hours impacting medication adherence. - Reports difficulty in managing weight due to work schedule. - Dietary indiscretions include high-sodium foods such as Turkish sausages and chips. - Occasional intake of sweets, reported as chocolates provided by clients. - Experiencing financial stress due to high work hours. Exam: awake, alert NAD, chronically ill appearing xenthelasma bilat RRR LS CTAB Right knee painful active and passive ROM, antalgic gait favoring L side BLE with lymphedema & chronic hemosiderin changes, Vascular ulcers bilat - see pictures Shoes not removed for exam. Severely morbidly obese RLE: LLE: Results Labs from 07/31/2024 normal electrolytes, normal renal function, random glucose of 102, hemoglobin A1c 6.3% which is the same that it was in May, calcium is 10.1, total bilirubin is elevated at 1.6 it was 1.2, normal LFTs, total protein is a little bit high at 8.1, albumin is normal, total cholesterol LDL and triglycerides are at goal HDL is low at 37 however improved from the previous of Plan - Refill Furosemide to continue managing edema - take daily at this time. - Encourage adherence to prescribed medication schedule despite work challenges. - Nutrition counseling to reduce sodium intake and manage diet in relation to diabetes. - Coordinate with a nurse navigator to resolve prescription insurance issues. - Consider arranging an appointment with a nurse for further medication management. - Monitor healing of lower extremity dermatological manifestations and assess the need for further intervention. Patient was informed and verbally consented to the use of an ambient scribe for clinic note documentation during this visit. Discussion Notes During our conversation, the patient and I discussed her challenges with managing her lower extremity edema, largely due to dietary habits and difficulties in obtaining medication refills. I acknowledged issues impacting her medication access and informed her that my team would assist in resolving this. I emphasized the importance of continuing her diuretics to manage the edema and advised on dietary modifications, particularly reducing sodium intake. We touched on her diabetes management, noting her stable A1c, and discussed how her work schedule impacts remembering to take medications. I recommended scheduling a follow-up with the nurse to assist with medication management. We discussed her physical workload and its contribution to stress, emphasizing the significance of self-care and balanced nutrition. Recommend calling bariatrics and r/s appt, same w/ Ortho. Vascular ulcers are a cont problem, she does not want to see Vascular or wound care at this time. There is no infection. Patient consented to proposed plans and adjustments. RTO in 2 weeks to meet in person with the nurse navigator for a blood pressure recheck as her blood pressure was elevated today. Also to work with her on chronic disease management and medication education. She can also help you to figure out why you are not able to get the prescriptions I have sent in specifically the torsemide and Jardiance. RTO to see me for routine fu in 3-4 months, sooner PRN Total time spent caring for the patient today was 45 minutes. This includes time spent before the visit reviewing the chart, time spent during the visit, and time spent after the visit on documentation, reviewing laboratory results, diagnostic imaging, medications, performing a medically necessary evaluation, counseling on diagnoses, care coordination, ordering appropriate tests, ordering appropriate medications, review of tests performed by other providers, reporting test results with the patient, communication with other healthcare providers. [facility] Medical History Very rapid heartbeat HTN (hypertension) Congenital blindness PAD (peripheral artery disease) Surgical History History of cardiac catheterization History of surgery on lower extremity Family History Maternal Grandfather Alcoholism in family member Lung cancer Primary cancer of optic nerve Cardiovascular disease Mother Hypotension Father Hypertension High cholesterol Diabetes Sister Diabetes Social History Household Members: None Housing: Apartment Are you a primary palliative care physician to a significant other at home: No Do you presently have visiting nurse or other home services: No 75 years or older and lives alone: No Alcohol intake: current Alcohol intake frequency: holidays/special occasions only Patient Tobacco Use Status: Never used Tobacco e-Cigarette/Vaping Use: Never Used Second Hand Smoke Exposure: No service: No Current occupational status: employed Sexual orientation: Unable to collect Gender identity: Female Cognitive needs: No Hearing needs: No Vision needs: No Questionnaire PHQ-9 Over the last 2 weeks, how often have you been bothered by any of the following problems? 1. Little interest or pleasure in doing things: not at all 2. Feeling down, depressed, or hopeless: not at all 3. Trouble falling or staying asleep, or sleeping too much: not at all 4. Feeling tired or having little energy: not at all 5. Poor appetite or overeating: nearly every day 6. Feeling bad about yourself - or that you are a failure or have let yourself or your family down: several days 7. Trouble concentrating on things, such as reading the newspaper or watching television: not at all 8. Moving or speaking so slowly that other people could have noticed. Or the opposite - being so fidgety or restless that you have been moving around a lot more than usual: not at all 9. Thoughts that you would be better off or of hurting yourself in some way: not at all Total score: 4 Depression Screening Interpretation: Negative Depression Screening Done: Yes 65149 - PHQ-9 Billing: Yes Source: Developed by Drs. Vinny Adams, Kathi Vazquez, Howie Correia and colleagues, with an educational efren from [employer]. Thrive Questionnaire Date Thrive assessed: 08/02/24 I am a: Patient What is your living situation today?: I have a steady place to live Within the past 12 months, did the food you bought not last and you didn't have the money to get more?: I choose not to answer this question Within the past 12 months, did you worry whether your food would run out before you got money to buy more?: I choose not to answer this question Do you have trouble paying for medicines?: I choose not to answer this question Do you have trouble getting transportation to medical appointments?: I choose not to answer this question Do you have trouble paying your heating and electricity bill?: I choose not to answer this question Do you have trouble taking care of your child, family member or friend?: I choose not to answer this question Do you have trouble with day-to-day activities such as bathing, preparing meals, shopping, managing finances, etc.?: I choose not to answer this question Are you currently unemployed and looking for a job?: I choose not to answer this question Are you interested in more education?: I choose not to answer this question Please select the resources that you would like help with: None Currently or been in a relationship where the following occur: I choose not to answer THRIVE Score: 0 AUDIT C Alcohol Use Questionnaire (AUDIT-C) 1. How often do you have a drink containing alcohol?: Never 3. How often do you have six or more drinks on one occasion?: Never Total Score: 0 Score Reviewed/Action Taken: Yes DARREL-7 AMB Questionnaire DARREL-7 Date DARREL - 7 assessed: 08/02/24 Feeling nervous, anxious, or on edge: 0 = Not at all Not being able to stop or control worryin = Not at all Worrying too much about different things: 0 = Not at all Trouble relaxin = Not at all Being so restless that it is hard to sit still: 0 = Not at all Becoming easily annoyed or irritable: 0 = Not at all Feeling afraid as if something awful might happen: 0 = Not at all Total DARREL-7 score (0-4 normal; 5-9 mild; 10-14 moderate; 15-21 severe): 0 Source: Developed by Drs. Vinny Adams, Kathi Vazquez, Howie Correia and colleagues, with an educational efren from [employer]. DARREL-7 Assessment Billing DARREL-7 Assessment Tool: DARREL-7 Assessment 30383 Physical exam (Primary Care) Vital Signs: Last Vital Signs Temp 97.5 F 08/02/24 08:50 Pulse 86 08/02/24 08:50 Resp 14 08/02/24 08:50 BP 160/84 H 08/02/24 09:40 Pulse Ox 98 08/02/24 08:50 Oxygen Delivery Method Room Air 08/02/24 08:50 Tobacco/Smoking Status: Tobacco use Status Tobacco use date assessed 05/24/24 08/02/24 08:52 Patient Tobacco Use Status Never used Tobacco 08/02/24 08:52 e-Cigarette/Vaping Use Never Used 08/02/24 08:52 PHQ-9: PHQ-9 Score PHQ-9: Total score 4 08/02/24 09:33 Depression Screening Interpretation: Negative Thrive Assessment: Date of Thrive Assessment Date Thrive assessed 08/02/24 08/02/24 08:52 Currently or been in a relationship where the following occur: I choose not to answer Coding Level of Care Code Est Pt Level 5 (17155) Complex EM visit Add On G2211 Diagnoses DM type 2 causing complication E11.8 BMI 60.0-69.9, adult Z68.44 Varicose veins of right lower extremity with inflammation I83.11 Xanthelasma of eyelid, bilateral H02.63; H02.66 Atherosclerosis of [place] artery of both lower extremities with bilateral ulceration of other part of lower legs I70.238; I70.248 Laterality: bilateral Lower extremity ulceration location: other part of lower leg Peripheral atherosclerosis artery type: [place] artery Peripheral atherosclerosis location: lower extremity Class 3 severe obesity due to excess calories with serious comorbidity and body mass index (BMI) of 60.0 to 69.9 in adult E66.01; Z68.44 Obesity type: due to excess calories Primary hypertension I10 Hypertension type: primary hypertension PAD (peripheral artery disease) I73.9 Lymphedema I89.0 Additional Codes DARREL-7 Assessment Billing - DARREL-7 Assessment Tool: DARREL-7 Assessment 37891 ([id number]) PHQ-9 - 13298 - PHQ-9 Billing: Yes ([id number]) Assessment & Plan Assessment & Plan (1) DM type 2 causing complication: Comment: new dx est 01/2024 Code(s): E11.8 - Type 2 diabetes mellitus with unspecified complications Category: Medical (2) BMI 60.0-69.9, adult: Code(s): Z68.44 - Body mass index [BMI] 60.0-69.9, adult Category: Medical (3) Varicose veins of right lower extremity with inflammation: Code(s): I83.11 - Varicose veins of right lower extremity with inflammation Category: Medical (4) Xanthelasma of eyelid, bilateral: Comment: start atorvastatin 40mg QD Cont to f/u with Optho Code(s): H02.63 - Xanthelasma of right eye, unspecified eyelid; H02.66 - Xanthelasma of left eye, unspecified eyelid Category: Medical (5) Atherosclerotic peripheral vascular disease with ulceration: Comment: referred to vasc surgery for eval and tx- declined fu cont Atorvastatin 40mg QD. Code(s): I70.209 - Unspecified atherosclerosis of [place] arteries of extremities, unspecified extremity; L98.499 - Non-pressure chronic ulcer of skin of other sites with unspecified severity Category: Medical Qualifiers: Laterality: bilateral Lower extremity ulceration location: other part of lower leg Peripheral atherosclerosis artery type: [place] artery Peripheral atherosclerosis location: lower extremity Qualified Code(s): I70.238 - Atherosclerosis of [place] arteries of right leg with ulceration of other part of lower leg; I70.248 - Atherosclerosis of [place] arteries of left leg with ulceration of other part of lower leg (6) Class 3 severe obesity with serious comorbidity and body mass index (BMI) of 60.0 to 69.9 in adult: Comment: with HTN and PAD Code(s): E66.01 - Morbid (severe) obesity due to excess calories; Z68.44 - Body mass index [BMI] 60.0-69.9, adult Category: Medical Qualifiers: Obesity type: due to excess calories Qualified Code(s): E66.01 - Morbid (severe) obesity due to excess calories; Z68.44 - Body mass index [BMI] 60.0-69.9, adult (7) HTN (hypertension): Comment: cont HCTZ 25mg po QD Goal <130/80 Code(s): I10 - Essential (primary) hypertension Category: Medical Qualifiers: Hypertension type: primary hypertension Qualified Code(s): I10 - Essential (primary) hypertension (8) PAD (peripheral artery disease): Comment: affecting BLE w/ ulcers of RLE Referred to vascular surgery declined fu Code(s): I73.9 - Peripheral vascular disease, unspecified Category: Medical (9) Lymphedema: Comment: BLE Code(s): I89.0 - Lymphedema, not elsewhere classified Category: Medical Plan . Orders: Referrals Nurse Navigator Referral E11.8 - Type 2 diabetes mellitus with unspecified complications Medications: New furosemide 40 mg PO BID 180 tabs 0RF Refilled hydrochlorothiazide 25 mg PO DAILY 90 tabs 0RF
[2024-08-02 08:50] VITALS: BP 182/90; PULSE 86; RESP 14; TEMP 36.4; O2SAT 98
[2024-08-02 09:40] VITALS: BP 160/84
== END 2024-08-02 12:49 | disposition home or self-care (01) ==
PROVIDERS: PCP Nurse Practitioner Family; Visit Provider Nurse Practitioner Family
DX: E11.8 Type 2 diabetes mellitus with unspecified complications (principal); Z68.44 Body mass index [BMI] 60.0-69.9, adult; I83.11 Varicose veins of right lower extremity with inflammation; H02.63 Xanthelasma of right eye, unspecified eyelid; H02.66 Xanthelasma of left eye, unspecified eyelid; I70.238 Atherosclerosis of native arteries of right leg with ulceration of other part of lower leg; I70.248 Atherosclerosis of native arteries of left leg with ulceration of other part of lower leg; E66.01 Morbid (severe) obesity due to excess calories; I10 Essential (primary) hypertension; I73.9 Peripheral vascular disease, unspecified; I89.0 Lymphedema, not elsewhere classified